=== PATIENT | female | born 1960 | race Caucasian/White ===

== ENCOUNTER → 2017-09-21 | Outpatient (CLI) | payer BC, SELFPAY | PROVIDERS: Visit Provider Emergency Medicine | DX: Z79.899 Other long term (current) drug therapy (principal) | CPT/HCPCS: 80305 ==

== ENCOUNTER → 2017-10-24 11:40 | Outpatient (REF) | payer BC, SELFPAY ==
[2017-10-24 17:15] LABS: Amphetamine/Metha Screen,Urine Negative ng/mL (<1000); Barbiturates Screen,Urine Negative ng/mL (<200); Benzodiazepines Screen,Urine Positive ng/mL (200); Cannabinoid Screen,Urine Negative ng/mL (<50); Cocaine Screen,Urine Negative ng/g (<300); Methadone Screen,Urine Negative ng/mL (<300); Opiate Screen,Urine Positive ng/mL (<300); Phencyclidine Screen,Urine Negative ng/mL (<25)
== END ==
LOC: LAB 11:40
PROVIDERS: Visit Provider Emergency Medicine
DX: Z79.899 Other long term (current) drug therapy (principal)
CPT/HCPCS: 80305

== ENCOUNTER → 2017-11-22 11:18 | Outpatient (REF) | payer BC, SELFPAY ==
[2017-11-22 14:36] LABS: Amphetamine/Metha Screen,Urine Negative ng/mL (<1000); Barbiturates Screen,Urine Negative ng/mL (<200); Benzodiazepines Screen,Urine Positive ng/mL (200); Cannabinoid Screen,Urine Negative ng/mL (<50); Cocaine Screen,Urine Negative ng/g (<300); Methadone Screen,Urine Negative ng/mL (<300); Opiate Screen,Urine Positive ng/mL (<300); Phencyclidine Screen,Urine Negative ng/mL (<25)
== END ==
LOC: LAB 11:18
PROVIDERS: Visit Provider Emergency Medicine
DX: Z79.899 Other long term (current) drug therapy (principal)
CPT/HCPCS: 80305

== ENCOUNTER → 2017-12-22 10:24 | Outpatient (CLI) | payer BC, SELFPAY ==
[2018-01-03 17:13] LABS: Oxycodone (GC/MS) 148 ng/mL (Cutoff=100)
[2018-01-03 22:48] LABS: Opiates Negative (Cutoff=100)
== END ==
PROVIDERS: Visit Provider Nurse Practitioner Family
DX: M54.9 Dorsalgia, unspecified (principal)
CPT/HCPCS: 80361; 80365; G0480

== ENCOUNTER → 2017-12-22 11:06 | Outpatient (REF) | payer BC, SELFPAY ==
[2017-12-22 15:12] LABS: Amphetamine/Metha Screen,Urine Negative ng/mL (<1000); Barbiturates Screen,Urine Negative ng/mL (<200); Benzodiazepines Screen,Urine Positive ng/mL (200); Cannabinoid Screen,Urine Negative ng/mL (<50); Cocaine Screen,Urine Negative ng/g (<300); Methadone Screen,Urine Negative ng/mL (<300); Opiate Screen,Urine Negative ng/mL (<300); Phencyclidine Screen,Urine Negative ng/mL (<25)
== END ==
LOC: LAB 11:06
PROVIDERS: Visit Provider Nurse Practitioner Family
DX: Z79.899 Other long term (current) drug therapy (principal)
CPT/HCPCS: 80305

== ENCOUNTER 2018-01-16 14:54 | Outpatient (RCR) | payer BC, SELFPAY | END 2018-01-16 14:55 | disposition home or self-care (01) | LOC: PT 14:54 | PROVIDERS: Family Provider Emergency Medicine; PCP Emergency Medicine; Visit Provider Orthopaedic Surgery | DX: S82.002A Unspecified fracture of left patella, initial encounter for closed fracture (principal) | CPT/HCPCS: 97760 ==

== ENCOUNTER → 2018-02-06 12:19 | Outpatient (CLI) | payer BC, SELFPAY ==
--- NOTE | 2018-02-06 12:22 | XR_ITS ---
XR patella LT 2V CLINICAL INDICATION: Follow-up fracture/ORIF ITS.REASON: 2 wks post op LT patella ORIF ORDERING PHYSICIAN: Roger Flower MD PATIENT AGE: 57 years COMPARISON: 01/22/2018 FINDINGS: Study is obtained through a knee brace. Status post ORIF patellar fracture. 2 screws in 2's cerclage wires remain in place with good alignment of the fracture fragments. Fracture lines are somewhat obscured. IMPRESSION: Good alignment status post ORIF patellar fracture
== END ==
PROVIDERS: PCP Emergency Medicine; Visit Provider Orthopaedic Surgery
DX: Z98.890 Other specified postprocedural states (principal)
CPT/HCPCS: 73560

== ENCOUNTER 2018-03-01 13:40 | Outpatient (RCR) | payer BC, SELFPAY ==
--- NOTE | 2018-03-01 14:48 | HMH.PTOPEV ---
PT Outpatient Evaluation Rehab PT Outpatient Evaluation Start: 03/01/18 14:24 Freq: Status: Active Protocol: Document 03/01/18 14:35 [email or web address] (Rec: 03/01/18 14:47 TAMIKO [id number]) Electronically Signed By Ravindra Hawthorne PT 03/01/18 14:35 Outpatient Therapy Subjective History Subjective History This is the initial physical therapy evaluation for Barbra Bravo. Pt is a 57 y/o female referred to PT s/o L patellar ORIF. Pt reports she has L foot drop from back injury. Pt reports she caught toe on step and fell fx L patella. Pt reprots fx was , surgery was 01/23. Pt now reprots to PT for ROM adjustment on brace and isometric quad exercises per ortho MD Chief Complaint Stiff Symptom Type Ache Symptoms Relieved By Rest/Positioning Symptoms Aggravated By Standing Physical Activity Walking Lifting Prior Functional Limitations None Current Functional Limitations Housework Standing Recreation Activity Walking Stairs Symptom Description Intermittent Hip/Knee Eval Gait Observation General Gait Pattern Observation Antalgic Gait Assistive Device Assistive Devices Straight Cane Palpation Tenderness left Knee Palpation Finding Tenderness Knee Palpation Overall Comment Pt TTP over incision and patella Hip Palpation Findings None/Normal MMT Hip Strength Reason Not Measured Orthopedic Precautions Knee Strength Reason Not Measured Orthopedic Precautions ROM Knee Extension Active Range of Motion ( 0 degrees) Knee Flexion Active Range of Motion ( 45 degrees) Outpatient Therapy Assessment Impairments Problems/Impairmments Palpation Tenderness Impaired Range of Motion Impaired Strength Impaired Gait Pattern Impaired Walking Impaired Standing Impaired Shower/Bathing Impaired Household Care Impaired Stair Climbing
== END 2018-03-01 13:41 | disposition home or self-care (01) ==
LOC: PT 13:40
PROVIDERS: Family Provider Emergency Medicine; PCP Emergency Medicine; Visit Provider Orthopaedic Surgery
DX: Z98.890 Other specified postprocedural states (principal)
CPT/HCPCS: 97163

== ENCOUNTER → 2018-03-09 08:47 | Outpatient (CLI) | payer BC, SELFPAY ==
--- NOTE | 2018-03-09 08:50 | XR_ITS ---
XR patella LT 2V Ordering Physician: Roger Flower MD Patient Age: 57 years: Female HISTORY: ITS.REASON: 6 wk post op LT patella ORIF 6 weeks postop TECHNIQUE: 2 view left knee with patient in brace. COMPARISON :Previous left knee 02/06/2018. FINDINGS The patient had undergone ORIF of the transverse fracture of patella. 2 long to the oriented screws with associated [id number]-[id number] wire seen providing fixation to the patellar fracture. It appears to be stable in position with no just above brace remain in place . Metallic elements flank the medial and lateral aspect the knee with this brace in place and partially obscure the more posterior aspect the knee on lateral view. The AP view shows slight narrowing of the medial compartment, which is been seen previously. IMPRESSION: Stable ORIF patellar fracture. Brace remains in place Developing degenerative new compartment left knee
== END ==
PROVIDERS: PCP Emergency Medicine; Visit Provider Orthopaedic Surgery
DX: Z47.89 Encounter for other orthopedic aftercare (principal)
CPT/HCPCS: 73560

== ENCOUNTER → 2018-03-09 10:59 | Outpatient (CLI) | payer BC, SELFPAY ==
[2018-03-09 19:46] LABS: Amphetamine/Metha Screen,Urine Negative ng/mL (<1000); Barbiturates Screen,Urine Negative ng/mL (<200); Benzodiazepines Screen,Urine Negative ng/mL (200); Cannabinoid Screen,Urine Negative ng/mL (<50); Cocaine Screen,Urine Negative ng/g (<300); Methadone Screen,Urine Negative ng/mL (<300); Opiate Screen,Urine Positive ng/mL (<300); Phencyclidine Screen,Urine Negative ng/mL (<25)
[2018-03-20 23:13] LABS: Oxycodone (GC/MS) >3000 ng/mL (Cutoff=100)
[2018-03-21 06:53] LABS: Opiates Negative (Cutoff=100); Oxymorphone (GC/MS) 590 ng/mL (Cutoff=100)
== END ==
PROVIDERS: Visit Provider Nurse Practitioner Family
DX: Z79.899 Other long term (current) drug therapy (principal)
CPT/HCPCS: 80305; 80361; 80365; G0480

== ENCOUNTER → 2018-03-12 08:27 | Outpatient (CLI) | payer BC, SELFPAY | PROVIDERS: Visit Provider Nurse Practitioner Family | DX: Z79.891 Long term (current) use of opiate analgesic (principal) ==

== ENCOUNTER → 2018-04-19 12:50 | Outpatient (CLI) | payer BC, SELFPAY ==
--- NOTE | 2018-04-19 12:53 | XR_ITS ---
XR patella LT 2V Ordering Physician: Roger Flower MD Patient Age: 57 years: Female HISTORY: ITS.REASON: s/p ORIF patella TECHNIQUE: AP lateral view left knee COMPARISON :Previous left knee 03/09/2018 and 818 FINDINGS The patient had undergone ORIF of a transverse fracture of patella. 2 longitudinal oriented screws with associated hsvcsm-ll-[id number] wire seen providing fixation to the patellar fracture. It appears to be stable in position. Today's studies a more true lateral projection and shows position of the distal patellar components compatible with studies dating back to 01/22/2018 02/06/2018. Questions some slight additional tilt of the inferior patellar fragment but overall it appears stable on final review. There is some mild soft tissue swelling persists inferior to the patella and along patellar tendon region AP view shows narrowing medial compartment with early arthritic changes at medial compartment. The external knee brace remains in place. IMPRESSION: ORIF patellar fracture. Overall fairly stable appearance of the patella with slight differences in lateral projection are considered Brace remains in place . degenerative changes medial compartment left knee IMPRESSION:
== END ==
PROVIDERS: PCP Emergency Medicine; Visit Provider Orthopaedic Surgery
DX: S82.002A Unspecified fracture of left patella, initial encounter for closed fracture (principal)
CPT/HCPCS: 73560

== ENCOUNTER → 2018-04-20 13:54 | Outpatient (CLI) | payer BC, SELFPAY ==
[2018-04-20 20:00] LABS: Amphetamine/Metha Screen,Urine Positive ng/mL (<1000); Barbiturates Screen,Urine Negative ng/mL (<200); Benzodiazepines Screen,Urine Positive ng/mL (<200); Cannabinoid Screen,Urine Negative ng/mL (<50); Cocaine Screen,Urine Negative ng/mL (<300); Methadone Screen,Urine Negative ng/mL (<300); Opiate Screen,Urine Negative ng/mL (<300); Phencyclidine Screen,Urine Negative ng/mL (<25)
== END ==
PROVIDERS: Visit Provider Emergency Medicine
DX: Z79.899 Other long term (current) drug therapy (principal)
CPT/HCPCS: 80305

== ENCOUNTER → 2018-04-24 10:51 | Outpatient (CLI) | payer BC, SELFPAY ==
--- NOTE | 2018-04-24 10:57 | CT_ITS ---
CT knee LT wo con Ordering Physician: Roger Flower MD Patient Age: 57 years: Female HISTORY: ITS.REASON: S/P patella ORIF Patellar fracture follow-up. Grinding voice at the left knee. Left knee surgery January 2018. TECHNIQUE: Helical thin section CT through the knee with sagittal, coronal, axial reconstructions on CT workstation. In addition 3-D volume rendering with shading images were performed. On independent workstation.-[id number] CPT COMPARISON :Recent plain films of the knee including 04/19/2018, 818 FINDINGS The patient has had previous ORIF of the transverse fracture of the patella.. 2 Longitudinal screws associated with a figure of 8 wire providing fixation to the patella. The sagittal reconstruction view best demonstrates the slight abrupt angled posterior cortex of the posterior patella.. Slight posterior/inward tilt of the lower pole. Suggested yielding this appearance. & 120 degree angle on this sagittal view. The cortical offset of noted. With this the inferior articular surface of patella appears to more prominently interface with the lateral femoral head at the lateral femoral trochanter groove. This feature is narrowing of the lateral patellofemoral joint on axial image 43 and correlates with appearance on inferior patella sagittal image 30-33. Joint effusion persists with Olson's cyst noted. Patient is developing arthritic changes about the knee with narrowing of the medial compartment-it narrows to just over 1 mm at its medial aspect Lateral compartment intact. Mild sclerotic changes about medial compartment more so than lateral. Early tricompartmental marginal osteophytes most evident note: This study was dictated with a voice-recognition system. There may be typographical error is related to such. If they are significant please notify us for corrections IMPRESSION 1. There is a OR I F of the transverse fracture patella. Mild irregularity & suggestion slight angulation of posterior patellar cortex at the fracture is seen on sagittal view. Lower pole appears with subtle tilt inward,/posterior tilt... This may questionably narrow inferior patellofemoral joint. -most evident lateral inferior patellofemoral joint. Correlation required. 2. Persistent joint effusion; with Olson's cyst noted 3. Developing such arthritis of the left knee most evident at medial compartment.
== END ==
PROVIDERS: Family Provider Emergency Medicine; PCP Emergency Medicine; Visit Provider Orthopaedic Surgery
DX: S82.002A Unspecified fracture of left patella, initial encounter for closed fracture (principal)
CPT/HCPCS: 73700

== ENCOUNTER → 2018-05-18 11:24 | Outpatient (REF) | payer BC, SELFPAY ==
[2018-05-18 14:37] LABS: Amphetamine/Metha Screen,Urine Negative ng/mL (<1000); Barbiturates Screen,Urine Negative ng/mL (<200); Benzodiazepines Screen,Urine Negative ng/mL (<200); Cannabinoid Screen,Urine Negative ng/mL (<50); Cocaine Screen,Urine Negative ng/mL (<300); Methadone Screen,Urine Negative ng/mL (<300); Opiate Screen,Urine Positive ng/mL (<300); Phencyclidine Screen,Urine Negative ng/mL (<25)
[2018-05-26 02:08] LABS: Oxycodone (GC/MS) >3000 ng/mL (Cutoff=100)
[2018-05-28 12:53] LABS: Opiates Negative (Cutoff=100); Oxymorphone (GC/MS) 1105 ng/mL (Cutoff=100)
== END ==
LOC: LAB 11:24
PROVIDERS: Visit Provider Emergency Medicine
DX: Z79.899 Other long term (current) drug therapy (principal)
CPT/HCPCS: 80305; 80361; 80365; G0480

== ENCOUNTER → 2018-06-01 09:49 | Outpatient (CLI) | payer BC, SELFPAY ==
--- NOTE | 2018-06-01 10:02 | XR_ITS ---
XR knee RT 4V, XR knee LT 2V Ordering Physician: Roger Flower MD Patient Age: 57 years: Female HISTORY: ITS.REASON: right knee pain Right knee pain. & Previous patellar fracture left knee . TECHNIQUE: Right knee: Weightbearing AP, lateral and Cruz views were performed as well as oblique.. Left knee:: AP and lateral view Left knee ====RIGHT KNEE========= Marked narrowing of the medial compartment measures most pronounced on Cruz view, where there appears merely efnw-sd-[id number] appearance at medial compartment. There is also slight narrowing the lateral compartment. Tricompartmental Marginal osteophytes. Of also some developing hypertrophic spurring at at the tibial spine Patella appears be normal position on sunrise view. Good position of patella at patellofemoral joint with marginal osteophytes about its margin . Large joint effusion at suprapatellar bursa. ---IMPRESSION Osteoarthritis right knee Tricompartmental marginal osteophytes with Narrowing of the medial> lateral compartment ===== LEFT KNEE AP and lateral views left knee are compared to APRIL 19, 2018. Orif of the transverse fracture of patella again noted the longitudinal screws with figure of 8 wire 9 providing fixation and there is been progressive healing at the fracture. Stable, slight cortical offset is seen at the posterior margin of patella. The slight vertebral to the lower pole. Left knee demonstrates less pronounced narrowing of the medial and lateral compartment on. Trace sclerosis about the slightly narrowed medial compartment suggesting early osteophytes here. Tricompartmental marginal osteophytes are minimal & less evident at the left knee. ---IMPRESSION--- Stable ORIF transverse patellar fracture with slight progressive healing since April 18 Osteoarthritis features at left knee are less evident than seen at right knee
== END ==
PROVIDERS: PCP Emergency Medicine; Visit Provider Orthopaedic Surgery
DX: M25.561 Pain in right knee (principal); S82.009A Unspecified fracture of unspecified patella, initial encounter for closed fracture
CPT/HCPCS: 73560; 73564

== ENCOUNTER → 2018-06-15 11:20 | Outpatient (CLI) | payer BC, SELFPAY ==
[2018-06-15 18:40] LABS: Amphetamine/Metha Screen,Urine Positive ng/mL (<1000); Barbiturates Screen,Urine Negative ng/mL (<200); Benzodiazepines Screen,Urine Positive ng/mL (<200); Cannabinoid Screen,Urine Negative ng/mL (<50); Cocaine Screen,Urine Negative ng/mL (<300); Methadone Screen,Urine Negative ng/mL (<300); Opiate Screen,Urine Positive ng/mL (<300); Phencyclidine Screen,Urine Negative ng/mL (<25)
== END ==
PROVIDERS: Visit Provider Emergency Medicine
DX: Z79.899 Other long term (current) drug therapy (principal)
CPT/HCPCS: 80305

== ENCOUNTER → 2018-07-13 10:00 | Outpatient (CLI) | payer BC, SELFPAY ==
[2018-07-13 15:24] LABS: Amphetamine/Metha Screen,Urine Positive ng/mL (<1000); Barbiturates Screen,Urine Negative ng/mL (<200); Benzodiazepines Screen,Urine Positive ng/mL (<200); Cannabinoid Screen,Urine Negative ng/mL (<50); Cocaine Screen,Urine Negative ng/mL (<300); Methadone Screen,Urine Negative ng/mL (<300); Opiate Screen,Urine Positive ng/mL (<300); Phencyclidine Screen,Urine Negative ng/mL (<25)
== END ==
PROVIDERS: Visit Provider Emergency Medicine
DX: Z79.899 Other long term (current) drug therapy (principal)
CPT/HCPCS: 80305

== ENCOUNTER → 2018-08-06 18:02 | Outpatient (CLI) | payer BC, SELFPAY ==
[2018-08-06 20:28] LABS: Amphetamine/Metha Screen,Urine Negative ng/mL (<1000); Barbiturates Screen,Urine Negative ng/mL (<200); Benzodiazepines Screen,Urine Negative ng/mL (<200); Cannabinoid Screen,Urine Negative ng/mL (<50); Cocaine Screen,Urine Negative ng/mL (<300); Methadone Screen,Urine Negative ng/mL (<300); Opiate Screen,Urine Positive ng/mL (<300); Phencyclidine Screen,Urine Negative ng/mL (<25)
== END ==
PROVIDERS: Visit Provider Emergency Medicine
DX: Z79.899 Other long term (current) drug therapy (principal)
CPT/HCPCS: 80305

== ENCOUNTER → 2018-09-21 18:14 | Outpatient (CLI) | payer BC, SELFPAY ==
[2018-09-21 18:49] LABS: Amphetamine/Metha Screen,Urine Negative ng/mL (<1000); Barbiturates Screen,Urine Negative ng/mL (<200); Benzodiazepines Screen,Urine Negative ng/mL (<200); Cannabinoid Screen,Urine Negative ng/mL (<50); Cocaine Screen,Urine Negative ng/mL (<300); Methadone Screen,Urine Negative ng/mL (<300); Opiate Screen,Urine Positive ng/mL (<300); Phencyclidine Screen,Urine Negative ng/mL (<25)
== END ==
PROVIDERS: Visit Provider Emergency Medicine
DX: M54.9 Dorsalgia, unspecified (principal); F41.9 Anxiety disorder, unspecified
CPT/HCPCS: 80305

== ENCOUNTER → 2018-11-05 17:37 | Outpatient (CLI) | payer BC, SELFPAY ==
[2018-11-05 18:49] LABS: Amphetamine/Metha Screen,Urine Negative ng/mL (<1000); Barbiturates Screen,Urine Positive ng/mL (<200); Benzodiazepines Screen,Urine Negative ng/mL (<200); Cannabinoid Screen,Urine Negative ng/mL (<50); Cocaine Screen,Urine Negative ng/mL (<300); Methadone Screen,Urine Negative ng/mL (<300); Opiate Screen,Urine Positive ng/mL (<300); Phencyclidine Screen,Urine Negative ng/mL (<25)
[2018-11-12 14:32] LABS: Barbiturates Positive (.)
== END ==
LOC: LAB 17:38 → LAB.DROPOF 11-06 09:11
PROVIDERS: Visit Provider Emergency Medicine
DX: Z79.899 Other long term (current) drug therapy (principal)
CPT/HCPCS: 80305; 80345

== ENCOUNTER → 2019-01-01 18:19 | Outpatient (CLI) | payer BC, SELFPAY ==
[2019-01-01 19:58] LABS: Amphetamine/Metha Screen,Urine Negative ng/mL (<1000); Barbiturates Screen,Urine Negative ng/mL (<200); Benzodiazepines Screen,Urine Negative ng/mL (<200); Cannabinoid Screen,Urine Negative ng/mL (<50); Cocaine Screen,Urine Negative ng/mL (<300); Methadone Screen,Urine Negative ng/mL (<300); Opiate Screen,Urine Positive ng/mL (<300); Phencyclidine Screen,Urine Negative ng/mL (<25)
== END ==
PROVIDERS: Visit Provider Emergency Medicine
DX: Z79.899 Other long term (current) drug therapy (principal)
CPT/HCPCS: 80305

== ENCOUNTER → 2019-02-26 21:26 | Outpatient (CLI) | payer BC, SELFPAY ==
[2019-02-26 23:54] LABS: Amphetamine/Metha Screen,Urine Negative ng/mL (<1000); Barbiturates Screen,Urine Negative ng/mL (<200); Benzodiazepines Screen,Urine Positive ng/mL (<200); Cannabinoid Screen,Urine Negative ng/mL (<50); Cocaine Screen,Urine Negative ng/mL (<300); Methadone Screen,Urine Negative ng/mL (<300); Opiate Screen,Urine Positive ng/mL (<300); Phencyclidine Screen,Urine Negative ng/mL (<25)
== END ==
PROVIDERS: Visit Provider Emergency Medicine
DX: Z79.899 Other long term (current) drug therapy (principal)
CPT/HCPCS: 80305

== ENCOUNTER → 2019-04-23 17:33 | Outpatient (CLI) | payer BC, SELFPAY ==
[2019-04-23 19:32] LABS: Amphetamine/Metha Screen,Urine Negative ng/mL (<1000); Barbiturates Screen,Urine Negative ng/mL (<200); Benzodiazepines Screen,Urine Negative ng/mL (<200); Cannabinoid Screen,Urine Negative ng/mL (<50); Cocaine Screen,Urine Negative ng/mL (<300); Methadone Screen,Urine Negative ng/mL (<300); Opiate Screen,Urine Positive ng/mL (<300); Phencyclidine Screen,Urine Negative ng/mL (<25)
== END ==
PROVIDERS: Visit Provider Emergency Medicine
DX: Z79.899 Other long term (current) drug therapy (principal)
CPT/HCPCS: 80305

== ENCOUNTER → 2019-06-25 18:03 | Outpatient (CLI) | payer BC, SELFPAY ==
[2019-06-25 19:08] LABS: Amphetamine/Metha Screen,Urine Negative ng/mL (<1000); Barbiturates Screen,Urine Negative ng/mL (<200); Benzodiazepines Screen,Urine Positive ng/mL (<200); Cannabinoid Screen,Urine Negative ng/mL (<50); Cocaine Screen,Urine Negative ng/mL (<300); Methadone Screen,Urine Negative ng/mL (<300); Opiate Screen,Urine Positive ng/mL (<300); Phencyclidine Screen,Urine Negative ng/mL (<25)
== END ==
PROVIDERS: Visit Provider Emergency Medicine
DX: M54.9 Dorsalgia, unspecified (principal)
CPT/HCPCS: 80305

== ENCOUNTER → 2019-08-23 17:16 | Outpatient (CLI) | payer BC, SELFPAY ==
[2019-08-23 18:22] LABS: Amphetamine/Metha Screen,Urine Negative ng/mL (<1000); Barbiturates Screen,Urine Negative ng/mL (<200); Benzodiazepines Screen,Urine Negative ng/mL (<200); Cannabinoid Screen,Urine Negative ng/mL (<50); Cocaine Screen,Urine Negative ng/mL (<300); Methadone Screen,Urine Negative ng/mL (<300); Opiate Screen,Urine Positive ng/mL (<300); Phencyclidine Screen,Urine Negative ng/mL (<25)
[2019-09-04 22:07] LABS: Alprazolam Negative (Cutoff=100); Benzodiazepines Negative ng/mL (Cutoff=100); Clonazepam Negative (Cutoff=100); Flurazepam Negative (Cutoff=100); Lorazepam Negative (Cutoff=100); Midazolam Negative (Cutoff=100); Temazepam Negative (Cutoff=100); Triazolam Negative (Cutoff=100)
[2019-09-05 11:15] LABS: Opiates Negative ng/mL (Cutoff=100)
== END ==
PROVIDERS: Visit Provider Emergency Medicine
DX: Z79.899 Other long term (current) drug therapy (principal)
CPT/HCPCS: 80305; 80346; 80361; G0480

== ENCOUNTER → 2019-10-23 17:16 | Outpatient (CLI) | payer BC, SELFPAY ==
[2019-10-23 19:25] LABS: Amphetamine/Metha Screen,Urine Negative ng/mL (<1000); Barbiturates Screen,Urine Negative ng/mL (<200); Benzodiazepines Screen,Urine Positive ng/mL (<200); Cannabinoid Screen,Urine Negative ng/mL (<50); Cocaine Screen,Urine Negative ng/mL (<300); Methadone Screen,Urine Negative ng/mL (<300); Opiate Screen,Urine Negative ng/mL (<300); Phencyclidine Screen,Urine Negative ng/mL (<25)
[2019-10-30 12:28] LABS: Oxycodone (GC/MS) >3000 ng/mL (Cutoff=100)
[2019-10-31 16:57] LABS: Opiates Negative (Cutoff=100)
== END ==
PROVIDERS: Visit Provider Emergency Medicine
DX: Z79.899 Other long term (current) drug therapy (principal)
CPT/HCPCS: 80305; 80361; 80365; G0480

== ENCOUNTER → 2020-02-12 14:50 | Outpatient (CLI) | payer BC, SELFPAY ==
[2020-02-12 15:24] LABS: Barbiturates Screen,Urine Negative ng/ml (<200)
[2020-02-12 15:25] LABS: Amphetamine/Metha Screen,Urine Positive ng/ml (<1000); Benzodiazepines Screen,Urine Negative ng/ml (<200)
[2020-02-12 15:26] LABS: Cannabinoid Screen,Urine Negative ng/ml (<50); Cocaine Screen,Urine Negative ng/ml (<300)
[2020-02-12 15:27] LABS: Methadone Screen,Urine Negative ng/ml (<300)
[2020-02-12 15:28] LABS: Opiate Screen,Urine Negative ng/ml (<300); Phencyclidine Screen,Urine Negative ng/ml (<25)
[2020-02-12 17:13] LABS: Basophils % 0.4 % (0.1-2.0); Eosinophils % 0.7 % (0.1-12.0); Hematocrit 41.8 % (37.0-47.0); Hemoglobin 13.3 g/dL (12.2-16.2); Lymphocytes # 1.5 K/mm3 (0.7-4.5); Lymphocytes % 23.1 % (10-50); Mean Corpuscular HGB Conc 31.8 g/dL (31.8-35.4); Mean Corpuscular Hemoglobin 30.3 pg (27.0-31.2); Mean Corpuscular Volume 95.4 fl (81-99); Mean Platelet Volume 9.2 fl (7.4-10.4); Monocytes # 0.3 K/mm3 (0.1-1.0); Monocytes % 4.1 % (1.7-9.3); Neutrophils # 4.6 K/mm3 (1.8-7.8); Neutrophils % 71.8 % (37.0-80.0); Platelet Count 202 K/mm3 (142-424); Red Blood Count 4.38 M/mm3 (4.20-5.40); Red Cell Distribution Width 13.3 % (11.5-17.5); White Blood Count 6.5 K/mm3 (4.8-10.8)
[2020-02-12 17:18] LABS: Chloride 92 mmol/L (98-107); Potassium 3.8 mmoL/L (3.5-5.1); Sodium 129 mmol/L (136-145)
[2020-02-12 17:20] LABS: Alanine Aminotransferase 15 U/L (12-78); Alkaline Phosphatase 68 U/L (38-126); Aspartate Amino Transferase 27 U/L (14-36); Bilirubin,Total 0.7 mg/dl (0.2-1.3); Blood Urea Nitrogen 6 mg/dl (7-17); Estimated Glomerular Filt Rate 126 ml/min (>60); GFR (African American) 152 ML/MIN (>60)
[2020-02-12 17:21] LABS: Albumin Level 4.4 g/dl (3.5-5.0); Albumin/Globulin Ratio 1.7 (1.1-1.8); Anion Gap 12.8 mEq/L (5-15); Calcium 9.1 mg/dl (8.4-10.2); Carbon Dioxide 28 mmol/L (22.0-30.0); Chol/HDL Ratio 2.2 (1-3.5); Cholesterol 148 mg/dl (140-200); Globulin 2.6 g/dL (1.3-3.2); Glucose 119 mg/dl (74-100); HDL Cholesterol 67 mg/dl (40-60); Triglycerides 70 mg/dl (30-150); VLDL Cholesterol 14 mg/dL (0-40)
[2020-02-12 17:32] LABS: Direct LDL Cholesterol 92.86 mg/dL (100-129)
[2020-02-12 17:37] LABS: T4 (Thyroxine) 8.1 ug/dl (5.53-11.0)
[2020-02-14 07:38] LABS: Vitamin D 25 Hydroxy 31.6 ng/mL (30.0-100.0)
[2020-02-19 14:18] LABS: Amphetamine Positive (.); Amphetamines Positive (.); Methamphetamine Positive (.)
[2020-02-20 11:34] LABS: Amphetamine (GC/MS) 534 ng/mL (Cutoff=500); Methamphetamine (GC/MS) 6412 ng/mL (Cutoff=500)
== END ==
PROVIDERS: Visit Provider Emergency Medicine
DX: Z00.00 Encounter for general adult medical examination without abnormal findings (principal); Z79.899 Other long term (current) drug therapy
CPT/HCPCS: 80053; 80061; 80305; 80324; 82652; 84436; 84443; 85025

== ENCOUNTER → 2021-11-02 11:22 | Outpatient (CLI) | payer BC, SELFPAY ==
--- NOTE | 2021-11-02 11:30 | XR_ITS ---
FINAL REPORT CLINICAL HISTORY: Left knee pain. COMPARISON: June 01, 2018. FINDINGS: 4 views of the left knee were obtained, including sunrise view. There is no acute fracture or dislocation. There are post ORIF changes of the patella. There are moderate degenerative changes at the knee joint. There is no soft tissue abnormality. No joint effusion is seen. IMPRESSION: No acute fracture. Postoperative and degenerative change. Reviewed, Interpreted and Dictated by Sarah Luevano MD Transcribed by Jojo Rome PA-C Authenticated by Sarah Luevano MD on 11/02/2021 01:03:14 PM [facility]
--- NOTE | 2021-11-02 11:30 | XR_ITS ---
FINAL REPORT CLINICAL HISTORY: Left wrist pain. COMPARISON: None. FINDINGS: Three views demonstrate no acute fracture or dislocation. There are post ORIF changes of the distal radius. There is an old ununited ulnar styloid process fracture. The visualized joint spaces are normally aligned. The soft tissues are unremarkable. IMPRESSION: Postoperative change. No acute process. Reviewed, Interpreted and Dictated by Sarah Luevano MD Transcribed by Jojo Rome PA-C Authenticated by Sarah Luevano MD on 11/02/2021 01:03:14 PM [facility]
--- NOTE | 2021-11-02 11:30 | XR_ITS ---
FINAL REPORT CLINICAL HISTORY: Right knee pain. COMPARISON: June 01, 2018. FINDINGS: 4 views of the right knee were obtained, including sunrise view. There is no acute fracture or dislocation. There is moderate to severe tricompartmental degenerative change. Degenerative disease is more prominent involving the lateral compartment. A moderate size joint effusion is present. IMPRESSION: Degenerative change and moderate joint effusion. Reviewed, Interpreted and Dictated by Sarah Luevano MD Transcribed by Jojo Rome PA-C Authenticated by Sarah Luevano MD on 11/02/2021 01:03:11 PM [facility]
--- NOTE | 2021-11-02 15:44 | XR_ITS ---
FINAL REPORT CLINICAL HISTORY: Right hip pain. COMPARISON: None. FINDINGS: Two views of the right hip demonstrate no acute fracture or dislocation. The joint spaces appear normal. The visualized bony structures are well aligned. No soft tissue abnormality is seen. IMPRESSION: No acute bony abnormality. Reviewed, Interpreted and Dictated by Sarah Luevano MD Transcribed by Jojo Rome PA-C Authenticated by Sarah Luevano MD on 11/02/2021 04:40:[address] [facility]
--- NOTE | 2021-11-02 15:44 | XR_ITS ---
FINAL REPORT CLINICAL HISTORY: Left hip pain. COMPARISON: None. FINDINGS: Two views of the left hip demonstrate no acute fracture or dislocation. There are mild degenerative changes. The visualized bony structures are well aligned. No soft tissue abnormality is seen. IMPRESSION: Mild degenerative change without evidence of acute process. Reviewed, Interpreted and Dictated by Sarah Luevano MD Transcribed by Jojo Rome PA-C Authenticated by Sarah Luevano MD on 11/02/2021 04:40:38 PM [facility]
== END ==
PROVIDERS: PCP Emergency Medicine; Visit Provider Podiatrist
DX: M25.562 Pain in left knee (principal); M25.561 Pain in right knee; M25.532 Pain in left wrist; M25.552 Pain in left hip; M25.551 Pain in right hip
CPT/HCPCS: 73110; 73502; 73564

== ENCOUNTER → 2021-11-23 13:40 | Outpatient (CLI) | payer BC, SELFPAY ==
--- NOTE | 2021-11-23 13:58 | XR_ITS ---
FINAL REPORT CLINICAL HISTORY: pain FINDINGS: 3 views of the left foot were obtained. There is no acute fracture or dislocation. The joint spaces are intact. The soft tissues are unremarkable. IMPRESSION: No acute process. Reviewed, Interpreted and Dictated by Malcolm Ledesma MD Transcribed by Haile Longoria Authenticated by Malcolm Ledesma MD on 11/23/2021 03:40:50 PM [facility]
--- NOTE | 2021-11-23 13:58 | XR_ITS ---
FINAL REPORT CLINICAL HISTORY: pain FINDINGS: 3 views of the right foot were obtained. There is no acute fracture or dislocation. The joint spaces are intact. The soft tissues are unremarkable. IMPRESSION: No acute process. Reviewed, Interpreted and Dictated by Malcolm Ledesma MD Transcribed by Haile Longoria Authenticated by Malcolm Ledesma MD on 11/23/2021 03:40:51 PM [facility]
== END ==
PROVIDERS: PCP Emergency Medicine; Visit Provider Podiatrist
DX: M79.672 Pain in left foot (principal); M79.671 Pain in right foot
CPT/HCPCS: 73630

== ENCOUNTER 2022-01-13 11:48 | Outpatient (RCR) | payer BC, SELFPAY | END 2022-01-13 12:47 | disposition home or self-care (01) | LOC: PT 11:48 | PROVIDERS: Visit Provider Orthopaedic Surgery | DX: M17.11 Unilateral primary osteoarthritis, right knee (principal) ==

== ENCOUNTER → 2022-04-20 06:29 | Outpatient (CLI) | payer BC, SELFPAY ==
[2022-04-19 20:34] LABS: Basophils % 0.5 % (0.1-2.0); Eosinophils # 0.1 K/mm3 (0.0-0.4); Eosinophils % 1.4 % (0.1-12.0); Hematocrit 43.9 % (37.0-47.0); Hemoglobin 14.6 g/dL (12.2-16.2); Lymphocytes # 2.1 K/mm3 (0.7-4.5); Lymphocytes % 28.1 % (10-50); Mean Corpuscular HGB Conc 33.3 g/dL (31.8-35.4); Mean Corpuscular Hemoglobin 31.5 pg (27.0-31.2); Mean Corpuscular Volume 94.7 fl (81-99); Mean Platelet Volume 10.1 fl (7.4-10.4); Monocytes # 0.4 K/mm3 (0.1-1.0); Monocytes % 5.5 % (1.7-9.3); Neutrophils # 4.7 K/mm3 (1.8-7.8); Neutrophils % 64.5 % (37.0-80.0); Platelet Count 232 K/mm3 (142-424); Red Blood Count 4.64 M/mm3 (4.20-5.40); Red Cell Distribution Width 12.9 % (11.5-17.5); White Blood Count 7.3 K/mm3 (4.8-10.8)
[2022-04-19 21:03] LABS: Alanine Aminotransferase 15 U/L (12-78); Albumin Level 4.7 g/dl (3.5-5.0); Albumin/Globulin Ratio 1.6 (1.1-1.8); Alkaline Phosphatase 69 U/L (38-126); Anion Gap 15.5 mEq/L (5-15); Aspartate Amino Transferase 20 U/L (14-36); Bilirubin,Total 0.4 mg/dl (0.2-1.3); Blood Urea Nitrogen 10 mg/dl (7-17); Calcium 9.5 mg/dl (8.4-10.2); Carbon Dioxide 29 mmol/L (22.0-30.0); Chloride 97 mmol/L (98-107); Chol/HDL Ratio 3.2 (1-3.5); Cholesterol 203 mg/dl (140-200); Estimated Glomerular Filt Rate 101 ml/min (>60); GFR (African American) 123 ML/MIN (>60); Glucose 82 mg/dl (74-100); HDL Cholesterol 64 mg/dl (40-60); Potassium 4.5 mmoL/L (3.5-5.1); Sodium 137 mmol/L (136-145); Total Protein,Serum 7.7 g/dl (6.3-8.2); Triglycerides 92 mg/dl (30-150); VLDL Cholesterol 18 mg/dL (0-40)
[2022-04-19 21:15] LABS: Direct LDL Cholesterol 109.01 mg/dL (100-129)
[2022-04-19 21:19] LABS: Free T4 (Free Thyroxine) 1.21 ng/dl (0.78-2.19)
[2022-04-19 21:35] LABS: Thyroid Stimulating Hormone 3.67 uIU/mL (0.465-4.68)
[2022-04-27 17:13] LABS: 1,25 Dihydroxy Vitamin D 38 pg/mL (.); 1,25-Dihydroxy, Vitamin D-2 <10 pg/mL (.); 1,25-Dihydroxy, Vitamin D-3 37 pg/mL (.)
== END ==
PROVIDERS: PCP Emergency Medicine; Visit Provider Emergency Medicine
DX: J44.9 Chronic obstructive pulmonary disease, unspecified (principal); E78.5 Hyperlipidemia, unspecified; M54.9 Dorsalgia, unspecified
CPT/HCPCS: 80053; 80061; 82652; 84439; 84443; 85025

== ENCOUNTER → 2022-05-11 14:57 | Outpatient (CLI) | payer BC, SELFPAY ==
--- NOTE | 2022-05-11 15:03 | XR_ITS ---
FINAL REPORT CLINICAL HISTORY: elbow pain COMPARISON: November 02, 2021 FINDINGS: LEFT WRIST Three views demonstrate a chronic fracture of the distal radius with postoperative changes from ORIF. 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 There is mild degenerative change. The visualized joint spaces are normally aligned. The soft tissues are unremarkable. IMPRESSION: Radius and ulnar fractures as described, stable. Reviewed, Interpreted and Dictated by Cali Walker III, MD Transcribed by Zuleyma Bonilla Authenticated and [facility]
[2022-05-11 19:12] LABS: Amphetamine/Metha Screen,Urine Negative ng/ml (<1000); Barbiturates Screen,Urine Negative ng/ml (<200)
[2022-05-11 19:13] LABS: Benzodiazepines Screen,Urine Negative ng/ml (<200); Cannabinoid Screen,Urine Negative ng/ml (<50)
[2022-05-11 19:14] LABS: Cocaine Screen,Urine Negative ng/ml (<300)
[2022-05-11 19:15] LABS: Methadone Screen,Urine Negative ng/ml (<300); Opiate Screen,Urine Negative ng/ml (<300)
[2022-05-11 19:16] LABS: Phencyclidine Screen,Urine Negative ng/ml (<25)
== END ==
PROVIDERS: PCP Emergency Medicine; Visit Provider Emergency Medicine
DX: M25.532 Pain in left wrist (principal); Z79.899 Other long term (current) drug therapy
CPT/HCPCS: 73110; 80305

== ENCOUNTER 2022-06-01 16:07 | Outpatient (RCR) | payer BC, SELFPAY | END 2022-06-01 17:00 | disposition home or self-care (01) | LOC: OT 16:07 | PROVIDERS: Visit Provider Orthopaedic Surgery | DX: M25.532 Pain in left wrist (principal) | CPT/HCPCS: 97763 ==

== ENCOUNTER → 2022-07-11 14:03 | Outpatient (CLI) | payer BC, SELFPAY ==
[2022-07-11 19:02] LABS: Amphetamine/Metha Screen,Urine Negative ng/ml (<1000)
[2022-07-11 19:03] LABS: Barbiturates Screen,Urine Negative ng/ml (<200); Benzodiazepines Screen,Urine Negative ng/ml (<200)
[2022-07-11 19:04] LABS: Cannabinoid Screen,Urine Negative ng/ml (<50); Methadone Screen,Urine Negative ng/ml (<300)
[2022-07-11 19:05] LABS: Cocaine Screen,Urine Negative ng/ml (<300)
[2022-07-11 19:08] LABS: Opiate Screen,Urine Negative ng/ml (<300); Phencyclidine Screen,Urine Negative ng/ml (<25)
== END ==
PROVIDERS: PCP Emergency Medicine; Visit Provider Emergency Medicine
DX: F41.9 Anxiety disorder, unspecified (principal); M54.50 Low back pain, unspecified
CPT/HCPCS: 80305

== ENCOUNTER → 2022-08-12 14:24 | Outpatient (CLI) | payer BC, SELFPAY ==
[2022-08-12 17:49] LABS: Coronavirus 19, PCR Not Detected (NotDetected); Influenza A, PCR Not Detected (NotDetected); Influenza B, PCR Not Detected (NotDetected)
== END ==
PROVIDERS: PCP Emergency Medicine; Visit Provider Emergency Medicine
DX: R05.9 Cough, unspecified (principal); Z20.822 Contact with and (suspected) exposure to COVID-19
CPT/HCPCS: C9803; U0003; U0005

== ENCOUNTER → 2022-08-22 15:36 | Outpatient (CLI) | payer BC, SELFPAY ==
--- NOTE | 2022-08-22 15:49 | XR_ITS ---
FINAL REPORT CLINICAL HISTORY: shortness of breath FINDINGS: 2 views of the chest were obtained . The heart is normal in size. The mediastinum is within normal limits. There is moderate right base atelectasis or scarring. There is no pneumothorax. Osseous structures demonstrate postoperative changes of the thoracolumbar spine. IMPRESSION: Moderate right base atelectasis or scarring. Reviewed, Interpreted and Dictated by Cali Walker III, MD Transcribed by Nory Todd Authenticated and [facility]
== END ==
PROVIDERS: PCP Emergency Medicine; Visit Provider Emergency Medicine
DX: R06.02 Shortness of breath (principal)
CPT/HCPCS: 71046

== ENCOUNTER → 2022-09-07 15:08 | Outpatient (CLI) | payer BC, SELFPAY ==
[2022-09-07 19:16] LABS: Amphetamine/Metha Screen,Urine Negative ng/ml (<1000)
[2022-09-07 19:17] LABS: Barbiturates Screen,Urine Negative ng/ml (<200)
[2022-09-07 19:18] LABS: Benzodiazepines Screen,Urine Positive ng/ml (<200); Cannabinoid Screen,Urine Negative ng/ml (<50)
[2022-09-07 19:19] LABS: Cocaine Screen,Urine Negative ng/ml (<300)
[2022-09-07 19:20] LABS: Methadone Screen,Urine Negative ng/ml (<300); Opiate Screen,Urine Positive ng/ml (<300)
[2022-09-07 19:21] LABS: Phencyclidine Screen,Urine Negative ng/ml (<25)
== END ==
PROVIDERS: PCP Emergency Medicine; Visit Provider Emergency Medicine
DX: Z79.899 Other long term (current) drug therapy (principal)
CPT/HCPCS: 80305

== ENCOUNTER → 2022-11-07 23:30 | Outpatient (CLI) | payer BC, SELFPAY ==
[2022-11-07 18:20] LABS: Barbiturates Screen,Urine Negative ng/ml (<200)
[2022-11-07 18:21] LABS: Benzodiazepines Screen,Urine Positive ng/ml (<200); Cannabinoid Screen,Urine Negative ng/ml (<50)
[2022-11-07 18:22] LABS: Cocaine Screen,Urine Negative ng/ml (<300)
[2022-11-07 18:23] LABS: Methadone Screen,Urine Negative ng/ml (<300); Opiate Screen,Urine Positive ng/ml (<300)
[2022-11-07 18:24] LABS: Phencyclidine Screen,Urine Negative ng/ml (<25)
[2022-11-09 18:50] LABS: Amphetamine/Metha Screen,Urine Negative ng/ml (<1000)
== END ==
PROVIDERS: PCP Emergency Medicine; Visit Provider Emergency Medicine
DX: Z79.899 Other long term (current) drug therapy (principal)
CPT/HCPCS: 80305

== ENCOUNTER → 2023-01-03 23:15 | Outpatient (CLI) | payer BC, SELFPAY ==
[2023-01-03 18:56] LABS: Amphetamine/Metha Screen,Urine Negative ng/ml (<1000)
[2023-01-03 18:57] LABS: Barbiturates Screen,Urine Negative ng/ml (<200); Benzodiazepines Screen,Urine Positive ng/ml (<200)
[2023-01-03 18:58] LABS: Cannabinoid Screen,Urine Negative ng/ml (<50)
[2023-01-03 18:59] LABS: Cocaine Screen,Urine Negative ng/ml (<300); Methadone Screen,Urine Negative ng/ml (<300)
[2023-01-03 19:00] LABS: Opiate Screen,Urine Positive ng/ml (<300)
[2023-01-03 19:01] LABS: Phencyclidine Screen,Urine Negative ng/ml (<25)
== END ==
PROVIDERS: PCP Emergency Medicine; Visit Provider Emergency Medicine
DX: Z79.899 Other long term (current) drug therapy (principal)
CPT/HCPCS: 80305

== ENCOUNTER → 2023-01-19 14:07 | Outpatient (CLI) | payer BC, SELFPAY ==
--- NOTE | 2023-01-19 14:16 | XR_ITS ---
FINAL REPORT CLINICAL HISTORY: right knee pain COMPARISON: 11/02/2021 FINDINGS: Three views of the right knee reveal no evidence of fracture or dislocation. The bony alignment is normal. There is moderate degenerative change with joint space narrowing, worst laterally and progressed from prior. There is a moderate joint effusion. No localized soft tissue abnormality is identified. IMPRESSION: Degenerative change and joint effusion with no acute abnormality identified. Reviewed, Interpreted and Dictated by Cali Walker III, MD Transcribed by Rajni Keller Authenticated and [facility]
--- NOTE | 2023-01-19 14:16 | XR_ITS ---
FINAL REPORT CLINICAL HISTORY: left wrist pain COMPARISON: 05/11/2022 FINDINGS: LEFT WRIST Three views demonstrate no acute fracture or dislocation. There are postoperative changes in the distal radius with a screw plate and multiple screws present. There is chronic deformity of the distal radius from prior fracture. There is a chronic fracture of the ulnar styloid process, nonunion. There is mild degenerative change. IMPRESSION: No acute process. Reviewed, Interpreted and Dictated by Cali Walker III, MD Transcribed by Rajni Keller Authenticated and [facility]
== END ==
PROVIDERS: PCP Emergency Medicine; Visit Provider Orthopaedic Surgery
DX: M25.532 Pain in left wrist (principal); M25.561 Pain in right knee
CPT/HCPCS: 73110; 73562

== ENCOUNTER → 2023-03-08 14:30 | Outpatient (CLI) | payer BC, SELFPAY | PROVIDERS: PCP Emergency Medicine; Visit Provider Emergency Medicine | DX: M54.16 Radiculopathy, lumbar region (principal) ==

== ENCOUNTER → 2023-03-08 19:23 | Outpatient (CLI) | payer BC, SELFPAY ==
[2023-03-08 21:46] LABS: Amphetamine/Metha Screen,Urine Negative ng/ml (<1000); Barbiturates Screen,Urine Negative ng/ml (<200)
[2023-03-08 21:48] LABS: Benzodiazepines Screen,Urine Positive ng/ml (<200)
[2023-03-08 21:49] LABS: Cannabinoid Screen,Urine Negative ng/ml (<50)
[2023-03-08 21:50] LABS: Cocaine Screen,Urine Negative ng/ml (<300); Methadone Screen,Urine Negative ng/ml (<300)
[2023-03-08 21:51] LABS: Opiate Screen,Urine Positive ng/ml (<300); Phencyclidine Screen,Urine Negative ng/ml (<25)
== END ==
PROVIDERS: PCP Emergency Medicine; Visit Provider Emergency Medicine
DX: M54.16 Radiculopathy, lumbar region (principal)
CPT/HCPCS: 80305

== ENCOUNTER → 2023-05-09 23:26 | Outpatient (CLI) | payer BC, SELFPAY ==
[2023-05-10 07:29] LABS: Amphetamine/Metha Screen,Urine Negative ng/ml (<1000); Barbiturates Screen,Urine Negative ng/ml (<200); Benzodiazepines Screen,Urine Positive ng/ml (<200); Cannabinoid Screen,Urine Negative ng/ml (<50); Cocaine Screen,Urine Negative ng/ml (<300); Opiate Screen,Urine Negative ng/ml (<300); Phencyclidine Screen,Urine Negative ng/ml (<25)
[2023-05-10 16:17] LABS: Methadone Screen,Urine Negative ng/ml (<300)
== END ==
PROVIDERS: PCP Emergency Medicine; Visit Provider Emergency Medicine
DX: Z79.899 Other long term (current) drug therapy (principal)
CPT/HCPCS: 80305

== ENCOUNTER → 2023-06-14 15:04 | Outpatient (POV) | payer BC, SELFPAY ==
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
[2023-06-14 15:41] VITALS: BP 122/71; PULSE 104; RESP 20; O2SAT 96; BMI 26.4
== END | disposition home or self-care (01) ==
PROVIDERS: PCP Emergency Medicine; Visit Provider Nurse Practitioner Family
DX: M25.561 Pain in right knee (principal); M25.562 Pain in left knee; M17.0 Bilateral primary osteoarthritis of knee; G89.4 Chronic pain syndrome
CPT/HCPCS: 99202; G0463

== ENCOUNTER → 2023-07-10 11:44 | Outpatient (CLI) | payer BC, SELFPAY | PROVIDERS: PCP Emergency Medicine; Visit Provider Emergency Medicine | DX: R53.83 Other fatigue (principal) ==

== ENCOUNTER → 2023-07-10 14:03 | Outpatient (CLI) | payer BC, SELFPAY ==
[2023-07-10 20:33] LABS: Amphetamine/Metha Screen,Urine Negative ng/ml (<1000); Barbiturates Screen,Urine Negative ng/ml (<200)
[2023-07-10 20:34] LABS: Benzodiazepines Screen,Urine Negative ng/ml (<200)
[2023-07-10 20:35] LABS: Cannabinoid Screen,Urine Negative ng/ml (<50); Cocaine Screen,Urine Negative ng/ml (<300)
[2023-07-10 20:36] LABS: Methadone Screen,Urine Negative ng/ml (<300)
[2023-07-10 20:37] LABS: Opiate Screen,Urine Negative ng/ml (<300); Phencyclidine Screen,Urine Negative ng/ml (<25)
== END ==
PROVIDERS: PCP Emergency Medicine; Visit Provider Emergency Medicine
DX: G89.4 Chronic pain syndrome (principal)
CPT/HCPCS: 80305

== ENCOUNTER → 2023-07-19 16:57 | Outpatient (CLI) | payer BC, SELFPAY ==
--- NOTE | 2023-07-19 16:57 | MM_ITS ---
PROCEDURE INFORMATION: Exam: MG Bilateral Screening 3D Mammography Exam date and time: 07/19/2023 4:48 PM Age: 62 years old Clinical indication: Screening examination TECHNIQUE: Imaging protocol: Bilateral Screening tomosynthesis and 2D mammography including computer-aided detection (CAD) when performed. COMPARISON: 1. MG DMDB DIG MAMM-DX CHIN W/CAD 10/12/2016 1:17 PM 2. MG DMDB DIG MAMM-DX CHIN 09/09/2016 1:26 PM FINDINGS: MAMMOGRAPHY: Breast composition: The breasts are extremely dense, which lowers the sensitivity of mammography. Mass: None. Architectural distortion: Questionable architectural distortion best seen on tomographic images in the middle third of the right upper outer quadrant Calcifications: No suspicious calcifications. Asymmetric density: None. Skin thickening: None. Axillary adenopathy: None. IMPRESSION: Patient to be recalled for spot compression views of the right breast in the CC and MLO projections, a full 90 degree lateral view, and right breast ultrasound for further evaluation of questionable architectural distortion. ASSESSMENT: BI-RADS Category 0: Incomplete- Need Additional Imaging Evaluation and/or Prior Mammograms for Comparison
== END ==
PROVIDERS: PCP Emergency Medicine; Visit Provider Emergency Medicine
DX: Z12.31 Encounter for screening mammogram for malignant neoplasm of breast (principal)
CPT/HCPCS: 77063; 77067

== ENCOUNTER → 2023-09-14 02:00 | Outpatient (CLI) | payer BC, SELFPAY ==
[2023-09-14 19:58] LABS: Barbiturates Screen,Urine Negative ng/ml (<200)
[2023-09-14 19:59] LABS: Amphetamine/Metha Screen,Urine Negative ng/ml (<1000); Benzodiazepines Screen,Urine Negative ng/ml (<200)
[2023-09-14 20:00] LABS: Cocaine Screen,Urine Negative ng/ml (<300); Methadone Screen,Urine Negative ng/ml (<300)
[2023-09-14 20:01] LABS: Cannabinoid Screen,Urine Negative ng/ml (<50)
[2023-09-14 20:02] LABS: Opiate Screen,Urine Positive ng/ml (<300)
[2023-09-14 20:03] LABS: Phencyclidine Screen,Urine Negative ng/ml (<25)
== END ==
PROVIDERS: PCP Internal Medicine; Visit Provider Internal Medicine
DX: Z79.899 Other long term (current) drug therapy (principal)
CPT/HCPCS: 80305

== ENCOUNTER 2023-10-10 11:40 | Outpatient (CLI) | payer BC, SELFPAY ==
[2023-10-10 14:50] LABS: Amphetamine/Metha Screen,Urine Negative ng/ml (<1000); Barbiturates Screen,Urine Negative ng/ml (<200); Benzodiazepines Screen,Urine Positive ng/ml (<200); Cannabinoid Screen,Urine Negative ng/ml (<50); Cocaine Screen,Urine Negative ng/ml (<300); Methadone Screen,Urine Negative ng/ml (<300); Opiate Screen,Urine Positive ng/ml (<300); Phencyclidine Screen,Urine Negative ng/ml (<25)
[2023-10-10 18:37] LABS: Creatinine,Urine Random 81 mg/dL (Not Estab.)
[2023-10-10 18:39] LABS: Microalbumin/Creatinine Ratio 19.7
[2023-10-10 19:19] LABS: Basophils % 0.3 % (0.1-2.0); Eosinophils # 0.1 K/mm3 (0.0-0.4); Eosinophils % 1.6 % (0.1-12.0); Lymphocytes # 1.4 K/mm3 (0.7-4.5); Lymphocytes % 22.3 % (10-50); Mean Corpuscular Hemoglobin 17.4 pg (27.0-31.2); Mean Corpuscular Volume 66.8 fl (81-99); Mean Platelet Volume 13.8 fl (7.4-10.4); Monocytes # 0.4 K/mm3 (0.1-1.0); Monocytes % 6.5 % (1.7-9.3); Neutrophils # 4.4 K/mm3 (1.8-7.8); Neutrophils % 69.3 % (37.0-80.0); Platelet Count 129 K/mm3 (142-424); Red Blood Count 2.54 M/mm3 (4.20-5.40); White Blood Count 6.3 K/mm3 (4.8-10.8)
[2023-10-10 19:22] LABS: Alanine Aminotransferase 13 U/L (12-78); Albumin Level 3.7 g/dl (3.5-5.0); Albumin/Globulin Ratio 1.5 (1.1-1.8); Alkaline Phosphatase 86 U/L (38-126); Anion Gap 13.8 mEq/L (5-15); Aspartate Amino Transferase 36 U/L (14-36); Bilirubin,Total 0.6 mg/dl (0.2-1.3); Blood Urea Nitrogen 5 mg/dl (7-17); Carbon Dioxide 22 mmol/L (22.0-30.0); Chloride 102 mmol/L (98-107); Chol/HDL Ratio 3.2 (1-3.5); Cholesterol 94 mg/dl (140-200); Estimated Glomerular Filt Rate 125 ml/min (>60); GFR (African American) 151 ML/MIN (>60); Globulin 2.5 g/dL (1.3-3.2); Glucose 96 mg/dl (74-100); HDL Cholesterol 29 mg/dl (40-60); Potassium 3.8 mmoL/L (3.5-5.1); Sodium 134 mmol/L (136-145); Total Protein,Serum 6.2 g/dl (6.3-8.2); Triglycerides 48 mg/dl (30-150); VLDL Cholesterol 10 mg/dL (0-40)
[2023-10-10 19:36] LABS: Direct LDL Cholesterol 63.31 mg/dL (100-129)
[2023-10-10 19:40] LABS: Hemoglobin 4.4 g/dL (12.2-16.2)
== END 2023-10-10 23:59 ==
LOC: LAB.DROPOF 11:40
PROVIDERS: PCP Internal Medicine; Visit Provider Internal Medicine
DX: Z79.899 Other long term (current) drug therapy (principal); R53.83 Other fatigue
CPT/HCPCS: 80053; 80061; 80307; 82043; 82570; 85025

== ENCOUNTER 2023-10-10 17:45 | Outpatient (CLI) | payer BC, SELFPAY | END 2023-10-10 23:59 | LOC: LAB.DROPOF 17:46 | PROVIDERS: PCP Internal Medicine; Visit Provider Internal Medicine | DX: Z79.899 Other long term (current) drug therapy (principal) ==

== ENCOUNTER 2023-10-11 00:18 | Observation (INO) | payer BC, SELFPAY ==
[2023-10-11] VITALS (43 sets, daily range): BP systolic 118–156; BP diastolic 58–81; PULSE 81–110; RESP 15–20; TEMP 36.5–37.1; O2SAT 92–100; BMI 27.4; BMI 27.8
--- NOTE | 2023-10-11 00:24 | ED_ITS ---
Discharge Plan Disposition Patient Disposition: Admitted Chief Complaint: Recheck/Abnormal Lab/Rx Clinical Impressions Clinical Impression: Iron deficiency anemia, Lymphadenopathy, Tachycardia Discharge ED Provider: Enrrique Murry Adult HPI General Chief complaint: Recheck/Abnormal Lab/Rx Stated complaint: Abnormal blood work sent by Dr. Chao Time Seen by Provider: 10/11/23 00:24 History of Present Illness HPI narrative: 62-year-old female presents from home with abnormal labs. She reports that she has been feeling ill for the last couple of months. She reports she feels generally weak, short of breath, is having difficulty walking across the room secondary to shortness of breath. She reports no significant weight loss reports her diet and appetite have been normal. Her hemoglobin was noted to be 4 with PCP labs drawn earlier today and they told her to come to the ER. She reports that her brother just of leukemia. She reports that she has a lump under the left angle of the jaw that has been present for at least several wee ks. She also reports that she had some new lumps in her armpits recently. She reports that she had a normal colonoscopy for 5 years ago. She reports she had an abnormal mammogram this fall. Related Data Home Medications Medication Instructions Recorded Confirmed citalopram 40 mg tablet See Rx Instructions .Route 06/14/23 10/10/23 .COMPLEX MOOD famotidine 40 mg tablet See Rx Instructions .Route 06/14/23 10/10/23 .COMPLEX STOMACH lisinopril 10 mg tablet See Rx Instructions .Route 06/14/23 10/10/23 .COMPLEX BLOOD PRESSURE sod picosulf 10 mg-magnes 3.5 160 ml PO DAILY BOWELS 06/14/23 10/10/23 gram-citric 12 gram/160 mL oral solution (Clenpiq) Previous Rx's Medication Instructions Recorded ropinirole 0.25 mg tablet 0.25 mg PO HS #30 tabs 07/06/23 budesonide-formoterol HFA 80 See Rx Instructions .Route 07/12/23 mcg-4.5 mcg/actuation aerosol .COMPLEX #10.2 grams inhaler (Symbicort) albuterol sulfate 90 mcg/actuation 2 puff inhalation BID PRN 09/14/23 aerosol inhaler (Ventolin HFA) Breathing Problems #8.5 grams diazepam 5 mg tablet (Valium) 5 mg PO TID Anxiety 30 days #90 09/14/23 tabs oxycodone-acetaminophen 10 mg-325 1 tab PO TID Pain #90 tabs 09/14/23 mg tablet (Percocet) ipratropium 0.5 mg-albuterol 3 mg See Rx Instructions .Route 10/10/23 (2.5 mg base)/3 mL nebulization .COMPLEX #180 mL soln Allergies Allergy/AdvReac Type Severity Reaction Status Date / Time hydrocodone Allergy Intermediate Hives Verified 10/10/23 10:38 omeprazole [From Prilosec] Allergy Intermediate Rash Verified 10/10/23 10:38 duloxetine [From CYMBALTA] Allergy Unknown I-HIVES Verified 10/10/23 10:38 penicillin G [PENICILLIN G] Allergy Unknown I-HIVES Verified 10/10/23 10:38 Sulfa (Sulfonamide Allergy Unknown I-HIVES Verified 10/10/23 10:38 Antibiotics) [SULFA (SULFONAMIDE ANTIBIOTICS)] [facility] Disclaimer: The information contained in this section may have been updated after the ralph stevens was seen, as this information can be updated by other users. Medical History History of anxiety History of depression History of foot drop History of gastroesophageal reflux (GERD) Hx of fracture of patella Hx of fracture of wrist Surgical History History of back surgery History of bladder surgery several History of cholecystectomy History of colonoscopy History of hysterectomy History of meniscectomy of left knee Hx of meniscectomy of right knee Family History Other Family history of diabetes mellitus type II Family history of hyperlipidemia Family history of hypertension Family history of stroke Social History Smoking Status: Never smoker alcohol intake: current substance use type: denies use, former substance user and methamphetamine current occupational status: disabled Travel in the last 8 weeks: None adopted: No household members: family housing: house lives independently: Yes marital status: education level: high school special sejal needs: No agree to transfusion: No do you feel safe at home: Yes victim of physical abuse: No victim of emotional abuse: No victim of sexual abuse: No would you like helpful sources: No ROS Obtained: Yes All systems reviewed & no additional complaints except as documented Physical Exam General General appearance: alert and in no apparent distress Comment: Pale Head Head exam: atraumatic and normocephalic Eye Eye exam: Present PERRL, EOMI and other (Pale conjunctive) ENT ENT exam: Present normal oropharynx and normal external ear exam Neck Neck exam: Present full ROM and other (Large firm swelling under the left angle of the jaw.) Chest Chest inspection: Present normal inspection and symmetric chest wall rise; Absent tenderness Respiratory Respiratory exam: Present normal lung sounds bilaterally; Absent respiratory distress Cardiovascular Cardiovascular exam: Present normal rhythm and tachycardia Abdominal Exam Abdominal exam: Present soft; Absent distention, tenderness or guarding Extremities Exam Extremities exam: Present normal inspection; Absent edema or joint swelling Back Exam Back exam: Present normal inspection; Absent tenderness Neurological Exam Neurological exam: Present alert and oriented X3; Absent motor sensory deficit Psychiatric Psychiatric exam: Present normal affect and normal mood Skin Skin exam: Present warm, dry and normal color Lymphatic Lymphatic Findings: no adenopathy, L axilla node enlarged and R axilla node enlarged Medical Decision Making Medical Records Medical records reviewed: Yes I reviewed the patient's medical records. Adarsh Inquiry Pt receiving controlled substance: No Adarsh was queried for this patient: No Vital Signs: 10/11/23 00:21 Temperature 97.9 F Temperature Source Oral Pulse Rate [Right Radial] 86 Respiratory Rate 20 Blood Pressure [Right Arm] 150/70 H Blood Pressure Mean [Right Arm] 96 02 Sat by Pulse Oximetry 92 L Oxygen Delivery Method Room Air Lab Data Lab results reviewed: Yes I reviewed the patient's lab results. Lab Results 10/11/23 00:37: WBC 7.0, RBC 2.33 L, Hgb 4.0 L*, Hct 15.3 L*, MCV 65.5 L, MCH 17.3 L, MCHC 26.4 L, RDW 21.0 H, Plt Count 130 L, MPV 12.7 H, Neut % (Auto) 70.7, Lymph % (Auto) 22.5, [place] % (Auto) 4.4, Eos % (Auto) 2.0, Baso % (Auto) 0.4, Neut # (Auto) 5.0, Lymph # (Auto) 1.6, [place] # (Auto) 0.3, Eos # (Auto) 0.1, Baso # (Auto) 0.0, Retic Count (auto) 2.4, PT 10.8, INR 1.00, APTT 20.7 L, Sodium 134 L, Potassium 3.8, Chloride 99, Carbon Dioxide 25, Anion Gap 13.8, BUN 5 L, Creatinine 0.60, Estimated Creat Clear 62, Estimated GFR 101, Est GFR ( Amer) 122, Glucose 106 H, Calcium 8.4, Iron 21 L, TIBC 419, Iron Saturation 5.08046 L, Total Bilirubin 0.6, AST 19 D, ALT 13, Alkaline Phosphatase 85, Total Protein 6.3, Albumin 3.8, Globulin 2.5, Albumin/Globulin Ratio 1.5, TSH 0.38 L, Thyroxine (T4) 10.0, Crossmatch (AHG) See Detail 10/11/23 00:37 10/11/23 00:37 Orders (Tests/Meds): ED MEDICATIONS Generic Name Dose Route Start Last Admin Trade Name Freq PRN Reason Stop Dose Admin Acetaminophen 650 mg 10/11/23 01:36 Acetaminophen 325mg Tab PO 11/10/23 01:35 Q4HP PRN Fever or Mild Pain (1-3) Sodium Chloride 250 mls @ 25 mls/hr 10/11/23 00:45 Sod Chlor 0.9% 250ml Bag IV 10/12/23 00:44 .Q10H TYESHA Lactated Ringer's 1,000 mls @ 50 mls/hr 10/11/23 01:45 Lactated Ringer's 1000 Ml Bag IV 11/10/23 01:44 .Q20H TYESHA Sodium Chloride 250 mls @ 25 mls/hr 10/11/23 01:45 Sod Chlor 0.9% 250ml Bag IV 10/12/23 01:44 .Q10H TYESHA ORDERS Category Date Time Status Transfuse RBC's [Red Blood Cells] Stat BBK 10/11/23 00:37 Received Type and Screen Stat BBK 10/11/23 00:37 Received CXR --portable [XR chest portable] Stat Exams 10/11/23 00:45 Completed Basic Metabolic Panel AMLAB Lab 10/11/23 06:00 Ordered CBC w/Auto Diff [Complete Blood Count Auto Diff] Stat Lab 10/11/23 00:37 Results CMP [Comprehensive Metabolic Panel] Stat Lab 10/11/23 00:37 Completed Complete Blood Count Auto Diff AMLAB Lab 10/11/23 06:00 Ordered Ferritin Stat Lab 10/11/23 00:37 Received Haptoglobin Stat Lab 10/11/23 00:37 Received INR [Prothrombin Time INR] Stat Lab 10/11/23 00:37 Completed Iron and TIBC Stat Lab 10/11/23 00:37 Completed Magnesium AMLAB Lab 10/11/23 06:00 Ordered PTT [Activated Partial Thrombo Time] Stat Lab 10/11/23 00:37 Completed Peripheral Smear Review Stat Lab 10/11/23 00:37 Results Reticulocyte % (Auto) Stat Lab 10/11/23 00:37 Results T4 (Thyroxine) Stat Lab 10/11/23 00:37 Completed TSH [Thyroid Stimulating Hormone] Stat Lab 10/11/23 00:37 Completed Medical Decision Narrative: 62-year-old female, presentation complicated by history of COPD presents with critical anemia from home.. History was obtained via conversation with patient, chart review. On arrival, patient is afebrile, mildly tachycardic, satting appropriately on room air, alert and oriented x 4 GCS 15, moving all extremities spontaneously. Full physical exam performed and significant for pale mucous membranes, axillary lymphadenopathy, left cervical lymphadenopathy Differential includes but is not limited to iron deficiency anemia, anemia of chronic disease, hematologic malignancy, GI bleed,. Workup initiated including CBC with differential, peripheral smear, iron studies, TSH T4, chest x-ray, CMP type and screen. On re-evaluation, patient patient remains afebrile, hemodynamically stable. Laboratory workup independently interpreted by me and significant for findings consistent with severe iron deficiency anemia. Hemoglobin 4.0, iron 21, iron saturation 5%. Imaging independently interpreted by me and significant for stable chest x-ray from prior, no new focal opacity. See radiology read for full review of final results. Transfusion was ordered. Interactive discussion was had with the hospitalist on-call for admission for further evaluation and management of anemia. Procedures Risk/Benefits of Procedure(s) Were Explained: Yes Critical Care Critical Care Time Critical Care Time: No
--- NOTE | 2023-10-11 00:28 | ECG_ITS ---
APPROVED REPORT Exam: Resting ECG HR:105 bpm ECG Measurements Heart Rate 105 AXES MN 173 P 41 QRSd 86 QRS 66 QT 337 T -9 QTc [address] DEVIATION AND MODERATE T-WAVE ABNORMALITY, CONSIDER INFERIOR ISCHEMIA [-0.1+ mV T-WAVE IN II/aVF] ABNORMAL ECG UNCONFIRMED REPORT Electronically signed by : Jonny Scott MD 10/11/2023 13:08:34
--- NOTE | 2023-10-11 00:45 | XR_ITS ---
PROCEDURE INFORMATION: Exam: XR Chest Exam date and time: 10/11/2023 1:02 AM Age: 62 years old Clinical indication: Shortness of breath; Additional info: Anemia, SOB, lymphadenopathy TECHNIQUE: Imaging protocol: Radiologic exam of the chest. Views: 1 view. COMPARISON: CR XR CHEST 2V 08/22/2022 3:53 PM FINDINGS: Limitations: The patient is wearing a bra which minimally limits the study. Lungs: No evidence of acute pulmonary disease or infiltrates; lung arita appear clear. Pleural spaces: No large effusion or pneumothorax. Heart/Mediastinum: Stable cardiac and mediastinal contours. Vasculature: There are calcifications of the aortic arch. Bones/joints: Extensive surgical hardware of the thoracolumbar spine. Other findings: The patient is rotated on the examination which somewhat alters the expected anatomic relationships and limits the study. IMPRESSION: No dense parenchymal consolidation, pleural effusion, or pneumothorax.
[2023-10-11 00:54] LABS: Basophils % 0.4 % (0.1-2.0); Eosinophils # 0.1 K/mm3 (0.0-0.4); Lymphocytes # 1.6 K/mm3 (0.7-4.5); Lymphocytes % 22.5 % (10-50); Mean Corpuscular HGB Conc 26.4 g/dL (31.8-35.4); Mean Corpuscular Hemoglobin 17.3 pg (27.0-31.2); Mean Corpuscular Volume 65.5 fl (81-99); Mean Platelet Volume 12.7 fl (7.4-10.4); Monocytes # 0.3 K/mm3 (0.1-1.0); Monocytes % 4.4 % (1.7-9.3); Neutrophils % 70.7 % (37.0-80.0); Platelet Count 130 K/mm3 (142-424); Red Blood Count 2.33 M/mm3 (4.20-5.40); Reticulocyte % (Auto) 2.4 % (0.9-3.2)
[2023-10-11 00:58] LABS: Chloride 99 mmol/L (98-107); Potassium 3.8 mmoL/L (3.5-5.1); Sodium 134 mmol/L (136-145)
[2023-10-11 01:00] LABS: Blood Urea Nitrogen 5 mg/dl (7-17); Creatinine Clearance Estimated 62 mL/min (50-200); Estimated Glomerular Filt Rate 101 ml/min (>60); GFR (African American) 122 ML/MIN (>60)
[2023-10-11 01:01] LABS: Alanine Aminotransferase 13 U/L (12-78); Albumin Level 3.8 g/dl (3.5-5.0); Albumin/Globulin Ratio 1.5 (1.1-1.8); Alkaline Phosphatase 85 U/L (38-126); Anion Gap 13.8 mEq/L (5-15); Aspartate Amino Transferase 19 U/L (14-36); Bilirubin,Total 0.6 mg/dl (0.2-1.3); Calcium 8.4 mg/dl (8.4-10.2); Carbon Dioxide 25 mmol/L (22.0-30.0); Globulin 2.5 g/dL (1.3-3.2); Glucose 106 mg/dl (74-100); Iron 21 ug/dL (37-170); Total Protein,Serum 6.3 g/dl (6.3-8.2)
[2023-10-11 01:10] LABS: Total Iron Binding Capacity 419 ug/dL (265-497)
[2023-10-11 01:15] LABS: Activated Partial Thrombo Time 20.7 seconds (22.8-30.6); Prothrombin Time 10.8 seconds (10.1-12.5)
[2023-10-11 01:34] LABS: Thyroid Stimulating Hormone 0.38 uIU/mL (0.465-4.68)
--- NOTE | 2023-10-11 02:01 | EXP.HP ---
History of Present Illness *Admission Date: 10/11/23 *Reason for visit:: Generalized weakness *History of present illness: This is a very pleasant 62-year-old female with a past medical history of HTN, COPD,, GERD who presents emergency department today with complaints of feeling generally ill for the last couple months. She reports shortness of breath and generally weak when walking because the room. She states that she is feels rundown. She denies any cough or chest pain. She does endorse new lumps in her armpits recently and a lump under the left jaw. She reports recent colonoscopy that was normal with an abnormal mammogram several months ago but she has not had follow-up for yet. She does endorse a familial history of leukemia, states that her brother just from this. Emergency Department workup significant for anemia with a hemoglobin of 4. Iron labs suggestive of iron deficiency anemia. She has been transfused 1 unit PRBCs and will be admitted to the hospital service for further evaluation. [facility] Disclaimer: The information contained in this section may have been updated after the patient was seen, as this information can be updated by other users. Medical History (Updated 10/11/23 @ 03:03 by Mirta Thomas RN) History of anxiety History of depression History of foot drop History of gastroesophageal reflux (GERD) Hx of fracture of patella Hx of fracture of wrist Surgical History (Updated 10/11/23 @ 03:04 by Mirta Thomas RN) History of back surgery History of bladder surgery History of cholecystectomy History of colonoscopy History of hysterectomy History of meniscectomy of left knee Hx of knee surgery Hx of meniscectomy of right knee Family History Other Family history of diabetes mellitus type II Family history of hyperlipidemia Family history of hypertension Family history of stroke Social History Smoking Status: Never smoker alcohol intake: current substance use type: denies use, former substance user and methamphetamine current occupational status: disabled Travel in the last 8 weeks: None adopted: No household members: family housing: house lives independently: Yes marital status: education level: high school special sejal needs: No agree to transfusion: No do you feel safe at home: Yes victim of physical abuse: No victim of emotional abuse: No victim of sexual abuse: No would you like helpful sources: No Review of Systems Review of Systems Review of systems:: pertinent systems reviewed and negative unless documented below Meds Home Medications and Allergies Home Medications Medication Instructions Recorded Confirmed Type citalopram 40 mg tablet See Rx Instructions .Route 06/14/23 10/11/23 History .COMPLEX MOOD famotidine 40 mg tablet See Rx Instructions .Route 06/14/23 10/11/23 History .COMPLEX STOMACH lisinopril 10 mg tablet See Rx Instructions .Route 06/14/23 10/11/23 History .COMPLEX BLOOD PRESSURE ropinirole 0.25 mg tablet 0.25 mg PO HS #30 tabs 07/06/23 10/11/23 Rx budesonide-formoterol HFA 80 See Rx Instructions .Route 07/12/23 10/11/23 Rx mcg-4.5 mcg/actuation aerosol .COMPLEX #10.2 grams inhaler (Symbicort) albuterol sulfate 90 mcg/actuation 2 puff inhalation BID PRN 09/14/23 10/11/23 Rx aerosol inhaler (Ventolin HFA) Breathing Problems #8.5 grams diazepam 5 mg tablet (Valium) 5 mg PO TID Anxiety 30 days #90 09/14/23 10/10/23 Rx tabs oxycodone-acetaminophen 10 mg-325 1 tab PO TID Pain #90 tabs 09/14/23 10/11/23 Rx mg tablet (Percocet) ipratropium 0.5 mg-albuterol 3 mg See Rx Instructions .Route 10/10/23 10/11/23 Rx (2.5 mg base)/3 mL nebulization .COMPLEX #180 mL soln New Prescriptions to Start Prescriptions: Allergies Allergy/AdvReac Type Severity Reaction Status Date / Time hydrocodone Allergy Intermediate Hives Verified 10/10/23 10:38 omeprazole [From Prilosec] Allergy Intermediate Rash Verified 10/10/23 10:38 duloxetine [From CYMBALTA] Allergy Unknown I-HIVES Verified 10/10/23 10:38 penicillin G [PENICILLIN G] Allergy Unknown I-HIVES Verified 10/10/23 10:38 Sulfa (Sulfonamide Allergy Unknown I-HIVES Verified 10/10/23 10:38 Antibiotics) [SULFA (SULFONAMIDE ANTIBIOTICS)] Exam Data for Last 24 hours Vital signs and Labs for Last 24 Hours: Temp Pulse Resp BP Pulse Ox O2 Del Method 97.9 F 86 20 150/70 H 92 L Room Air 10/11/23 00:21 10/11/23 00:21 10/11/23 00:21 10/11/23 00:21 10/11/23 00:21 10/11/23 00:21 Laboratory Results - last 24 hr 10/11/23 00:37: WBC 7.0, RBC 2.33 L, Hgb 4.0 L*, Hct 15.3 L*, MCV 65.5 L, MCH 17.3 L, MCHC 26.4 L, RDW 21.0 H, Plt Count 130 L, MPV 12.7 H, Neut % (Auto) 70.7, Lymph % (Auto) 22.5, [place] % (Auto) 4.4, Eos % (Auto) 2.0, Baso % (Auto) 0.4, Neut # (Auto) 5.0, Lymph # (Auto) 1.6, [place] # (Auto) 0.3, Eos # (Auto) 0.1, Baso # (Auto) 0.0, Retic Count (auto) 2.4, PT 10.8, INR 1.00, APTT 20.7 L, Sodium 134 L, Potassium 3.8, Chloride 99, Carbon Dioxide 25, Anion Gap 13.8, BUN 5 L, Creatinine 0.60, Estimated Creat Clear 62, Estimated GFR 101, Est GFR ( Amer) 122, Glucose 106 H, Calcium 8.4, Iron 21 L, TIBC 419, Iron Saturation 5.09243 L, Total Bilirubin 0.6, AST 19 D, ALT 13, Alkaline Phosphatase 85, Total Protein 6.3, Albumin 3.8, Globulin 2.5, Albumin/Globulin Ratio 1.5, TSH 0.38 L, Thyroxine (T4) 10.0, Blood Type A Positive, Antibody Screen Negative, Crossmatch (AHG) See Detail I & O for Last 24 hours: Intake & Output 10/08/23 10/09/23 10/10/23 10/11/23 23:59 23:59 23:59 23:59 Weight 68.039 kg Constitutional Constitutional: no acute distress *Routine HEENT Exam Head: Present normocephalic and atraumatic Eye: Present EOMI and PERRL ENT: Present mucous membranes moist *Routine Neck Exam Neck: Present supple and full ROM *Routine Respiratory Exam Respiratory: Present normal respiratory effort and symmetric chest movement *Routine Cardiovascular Exam Cardiovascular: Present RRR, Normal S1 and Normal S2 *Routine Abdominal Exam Abdominal: Present soft and normoactive bowel sounds *Routine Rectal Exam Rectal:: normal sphincter tone *Routine Genitalia Exam Genitalia:: deferred *Routine Extremities Exam Extremities: Present full ROM and normal capillary refill *Routine Skin Exam Skin: Present intact *Routine Neurological Exam Neurological: Present alert, oriented X3 and CN II-XII intact Assessment and Plan *Assessment and plan (1) Iron deficiency anemia: Status: Acute Qualifiers: Iron deficiency anemia type: unspecified iron deficiency Qualified Code(s): D50.9 - Iron deficiency anemia, unspecified Category: Medical Code(s): D50.9 - Iron deficiency anemia, unspecified (2) Lymphadenopathy: Status: Acute Category: Medical Code(s): R59.1 - Generalized enlarged lymph nodes (3) Tachycardia: Status: Acute Category: Medical Code(s): R00.0 - Tachycardia, unspecified (4) COPD (chronic obstructive pulmonary disease): Problem Comment: I made a mistake at the last visit and dictated that she was still smoking. Barbra has never smoked. She has history of secondhand smoke as well as some viral infections that have caused her to have COPD. Status: Acute Qualifiers: COPD type: unspecified COPD Qualified Code(s): J44.9 - Chronic obstructive pulmonary disease, unspecified Category: Medical Code(s): J44.9 - Chronic obstructive pulmonary disease, unspecified Plan This is a 62-year-old female with past medical history of COPD, GERD, hypertension who presents emergency department today with complaints of generalized weakness. She was found to have a hemoglobin of 4 with what appears to be iron deficiency anemia. Microcytic anemia Iron saturation of 5 with a iron level of 21 likely revealing RYANN Hemoglobin of 4, will transfuse 3 units PRBCs now Lymphadenopathy Submandibular lymphadenopathy as well as axilla Known to patient and being worked up outpatient. Patient's brother did have leukemia so this is concerning for patient. I believe she is scheduled for outpatient MRI of head and neck. Chronic obstructive pulmonary disease Currently stable, continue patient's home bronchodilators Chronic pain Continue home patient medications DVT PPx SCDs Full code Rounded on patient after nurse practitioner. Personally examined and interviewed patient. Agree with exam findings and care plan as documented. Unclear etiology, suspect component of GI loss. Surgery consulted. Plan for EGD later today. Initiated on famotidine. Repeat labs pending transfusion. Will need iron infusion before discharge home.
[2023-10-11 03:34] LABS: Ferritin 3.17 ng/ml (11.1-264)
[2023-10-11] MEDS: ACETAMINOPHEN 325MG TAB 650 MG PO ×2 (03:37→16:21)
[2023-10-11] MEDS: LACTATED RINGERS 1000ML 1,000 ML 50 ML IV ×2 (04:40→21:35)
--- NOTE | 2023-10-11 08:07 | PC.NURSE ---
Patient was on unit 2/3 of blood. Patient blood was verified with Tomas Guerrero RN. When This RN went back to put in vitals the Verification did not go through. RN attempted to reverify but It would not let me put in vitals without the previtals, even though they were already in. RN called lab and they stated to put in a note and they would fix the issue on there end. Pre Vitals 0622- 126/67, RR 16, o2 97, Pulse 93, Temp 98.3 Start vitals 0635- 131/68, RR 18 o2 98, Pulse 95, temp 98.5 5 min vital 0640- 132/69, RR 14, o2 99, Pulse 96 Temp 98.5 10min Vital 0645- 121/65, RR 14, o2 99, Pulse 94 Temp 98.4 15min Vitals 0650 - 127/68, RR 16, o298, Pulse 96 Temp 98.5 30min vitals 0705- 134/63 RR 15, O2 98, Pulse 94, Temp 98.1 45min vital 0720- 139/77 RR 16 O2 96, pulse 96, Temp 98.2 60min vital 0735- 137/75 RR 15 O2 94, Pulse 95, temp 98.4 Blood was still infusing with this RN left shift.
[2023-10-11 08:44] LABS: Hematocrit 15.3 % (37.0-47.0)
--- NOTE | 2023-10-11 08:47 | P.CONS_ITS ---
History of Present Illness *Admission Date: 10/11/23 *Reason for visit:: Anemia *History of present illness: This is a 62-year-old female seen in consultation from the primary service for evaluation regarding anemia from suspected subacute/chronic gastrointestinal loss. She reports that she had a normal colonoscopy approximately 3 years ago at an outside facility. Forwarded from admission H&P: This is a very pleasant 62-year-old female with a past medical history of HTN, COPD,, GERD who presents emergency department today with complaints of feeling generally ill for the last couple months. She reports shortness of breath and generally weak when walking because the room. She states that she is feels rundown. She denies any cough or chest pain. She does endorse new lumps in her armpits recently and a lump under the left jaw. She reports recent colonoscopy that was normal with an abnormal mammogram several months ago but she has not had follow-up for yet. She does endorse a familial history of leukemia, states that her brother just from this. Emergency Department workup significant for anemia with a hemoglobin of 4. Iron labs suggestive of iron deficiency anemia. She has been transfused 1 unit PRBCs and will be admitted to the hospital service for further evaluation. [facility] Disclaimer: The information contained in this section may have been updated after the patient was seen, as this information can be updated by other users. Medical History (Updated 10/11/23 @ 03:03 by Mirta Thomas RN) History of anxiety History of depression History of foot drop History of gastroesophageal reflux (GERD) Hx of fracture of patella Hx of fracture of wrist Surgical History (Updated 10/11/23 @ 03:04 by Mirta Thomas RN) History of back surgery History of bladder surgery History of cholecystectomy History of colonoscopy History of hysterectomy History of meniscectomy of left knee Hx of knee surgery Hx of meniscectomy of right knee Family History Other Family history of diabetes mellitus type II Family history of hyperlipidemia Family history of hypertension Family history of stroke Social History Smoking Status: Never smoker alcohol intake: current substance use type: denies use, former substance user and methamphetamine current occupational status: disabled Travel in the last 8 weeks: None adopted: No household members: family housing: house lives independently: Yes marital status: education level: high school special sejal needs: No agree to transfusion: No do you feel safe at home: Yes victim of physical abuse: No victim of emotional abuse: No victim of sexual abuse: No would you like helpful sources: No Meds Home Medications and Allergies Home Medications Medication Instructions Recorded Confirmed Type citalopram 40 mg tablet See Rx Instructions .Route 06/14/23 10/11/23 History .COMPLEX MOOD famotidine 40 mg tablet See Rx Instructions .Route 06/14/23 10/11/23 History .COMPLEX STOMACH lisinopril 10 mg tablet See Rx Instructions .Route 06/14/23 10/11/23 History .COMPLEX BLOOD PRESSURE ropinirole 0.25 mg tablet 0.25 mg PO HS #30 tabs 07/06/23 10/11/23 Rx budesonide-formoterol HFA 80 See Rx Instructions .Route 07/12/23 10/11/23 Rx mcg-4.5 mcg/actuation aerosol .COMPLEX #10.2 grams inhaler (Symbicort) albuterol sulfate 90 mcg/actuation 2 puff inhalation BID PRN 09/14/23 10/11/23 Rx aerosol inhaler (Ventolin HFA) Breathing Problems #8.5 grams diazepam 5 mg tablet (Valium) 5 mg PO TID Anxiety 30 days #90 09/14/23 10/10/23 Rx tabs oxycodone-acetaminophen 10 mg-325 1 tab PO TID Pain #90 tabs 09/14/23 10/11/23 Rx mg tablet (Percocet) ipratropium 0.5 mg-albuterol 3 mg See Rx Instructions .Route 10/10/23 10/11/23 Rx (2.5 mg base)/3 mL nebulization .COMPLEX #180 mL soln New Prescriptions to Start Prescriptions: Allergies Allergy/AdvReac Type Severity Reaction Status Date / Time hydrocodone Allergy Intermediate Hives Verified 10/10/23 10:38 omeprazole [From Prilosec] Allergy Intermediate Rash Verified 10/10/23 10:38 duloxetine [From CYMBALTA] Allergy Unknown I-HIVES Verified 10/10/23 10:38 penicillin G [PENICILLIN G] Allergy Unknown I-HIVES Verified 10/10/23 10:38 Sulfa (Sulfonamide Allergy Unknown I-HIVES Verified 10/10/23 10:38 Antibiotics) [SULFA (SULFONAMIDE ANTIBIOTICS)] Exam (Inpt) Vital signs and Labs for Last 24 Hours: Temp Pulse Resp BP Pulse Ox O2 Del Method 98.5 F 95 H 18 131/68 98 Room Air 10/11/23 06:35 10/11/23 06:35 10/11/23 06:35 10/11/23 06:35 10/11/23 06:35 10/11/23 07:00 Laboratory Results - last 24 hr 10/11/23 00:37: WBC 7.0, RBC 2.33 L, Hgb 4.0 L*, Hct 15.3 L*, MCV 65.5 L, MCH 17.3 L, MCHC 26.4 L, RDW 21.0 H, Plt Count 130 L, MPV 12.7 H, Neut % (Auto) 70.7, Lymph % (Auto) 22.5, [place] % (Auto) 4.4, Eos % (Auto) 2.0, Baso % (Auto) 0.4, Neut # (Auto) 5.0, Lymph # (Auto) 1.6, [place] # (Auto) 0.3, Eos # (Auto) 0.1, Baso # (Auto) 0.0, Retic Count (auto) 2.4, PT 10.8, INR 1.00, APTT 20.7 L, Sodium 134 L, Potassium 3.8, Chloride 99, Carbon Dioxide 25, Anion Gap 13.8, BUN 5 L, Creatinine 0.60, Estimated Creat Clear 62, Estimated GFR 101, Est GFR ( Amer) 122, Glucose 106 H, Calcium 8.4, Iron 21 L, TIBC 419, Iron Saturation 5.02467 L, Ferritin 3.17 L, Total Bilirubin 0.6, AST 19 D, ALT 13, Alkaline Phosphatase 85, Total Protein 6.3, Albumin 3.8, Globulin 2.5, Albumin/Globulin Ratio 1.5, TSH 0.38 L, Thyroxine (T4) 10.0, Blood Type A Positive, Blood Type Confirm A Positive, Antibody Screen Negative, Crossmatch (A HG) See Detail I & O for Labs for Last 24 Hours: Intake & Output 10/08/23 10/09/23 10/10/23 01/10/24 11:59 11:59 11:59 11:59 Intake Total 250 / 250 Balance 250 / 250 Weight 151 lb 9.6 oz Constitutional: no acute distress Respiratory: Absent respiratory distress Cardiac: Absent Tachycardia GI: Present soft Results Labs 10/11/23 00:37 10/11/23 00:37 Labs: Laboratory Results - last 24 hr 10/11/23 00:37: WBC 7.0, RBC 2.33 L, Hgb 4.0 L*, Hct 15.3 L*, MCV 65.5 L, MCH 17.3 L, MCHC 26.4 L, RDW 21.0 H, Plt Count 130 L, MPV 12.7 H, Neut % (Auto) 70.7, Lymph % (Auto) 22.5, [place] % (Auto) 4.4, Eos % (Auto) 2.0, Baso % (Auto) 0.4, Neut # (Auto) 5.0, Lymph # (Auto) 1.6, [place] # (Auto) 0.3, Eos # (Auto) 0.1, Baso # (Auto) 0.0, Retic Count (auto) 2.4, PT 10.8, INR 1.00, APTT 20.7 L, Sodium 134 L, Potassium 3.8, Chloride 99, Carbon Dioxide 25, Anion Gap 13.8, BUN 5 L, Creatinine 0.60, Estimated Creat Clear 62, Estimated GFR 101, Est GFR ( Amer) 122, Glucose 106 H, Calcium 8.4, Iron 21 L, TIBC 419, Iron Sa turation 5.12718 L, Ferritin 3.17 L, Total Bilirubin 0.6, AST 19 D, ALT 13, Alkaline Phosphatase 85, Total Protein 6.3, Albumin 3.8, Globulin 2.5, Albumin/Globulin Ratio 1.5, TSH 0.38 L, Thyroxine (T4) 10.0, Blood Type A Positive, Blood Type Confirm A Positive, Antibody Screen Negative, Crossmatch (AHG) See Detail Assessment and Plan *Assessment and plan (1) Iron deficiency anemia: Status: Acute Qualifiers: Iron deficiency anemia type: unspecified iron deficiency Qualified Code(s): D50.9 - Iron deficiency anemia, unspecified Category: Medical Code(s): D50.9 - Iron deficiency anemia, unspecified Plan: Proton pump inhibition Continue transfusions as per primary service Esophagogastroduodenoscopy planned for later today I have discussed the risks and benefits including, but not limited to: Bleeding Infection Damage to surrounding tissue Inherent risks of sedation The patient agrees to proceed.
[2023-10-11] MEDS: LISINOPRIL 10MG TABLET 10 MG PO (08:53)
--- NOTE | 2023-10-11 09:16 | PC.NURSE ---
2nd unit of blood ended at 0912.
[2023-10-11] MEDS: FAMOTIDINE 20MG/2ML VIAL 20 MG IV ×2 (09:44→21:06)
[2023-10-11] MEDS: 0.9 % SODIUM CHLORIDE 250 ML 25 ML IV (09:50)
--- NOTE | 2023-10-11 11:35 | EXP.ANES.CKL ---
[facility] Disclaimer: The information contained in this section may have been updated after the patient was seen, as this information can be updated by other users. Medical History History of anxiety History of depression History of foot drop History of gastroesophageal reflux (GERD) Hx of fracture of patella Hx of fracture of wrist Surgical History (Updated 10/11/23 @ 03:04 by Mirta Thomas RN) History of back surgery History of bladder surgery History of cholecystectomy History of colonoscopy History of hysterectomy History of meniscectomy of left knee Hx of knee surgery Hx of meniscectomy of right knee Family History Other Family history of diabetes mellitus type II Family history of hyperlipidemia Family history of hypertension Family history of stroke Social History Smoking Status: Never smoker alcohol intake: current substance use type: denies use, former substance user and methamphetamine current occupational status: disabled Travel in the last 8 weeks: None adopted: No household members: family housing: house lives independently: Yes marital status: education level: high school special sejal needs: No agree to transfusion: No do you feel safe at home: Yes victim of physical abuse: No victim of emotional abuse: No victim of sexual abuse: No would you like helpful sources: No [facility] Anesthesia Checklist Patient Identification Patient Identification: Arm Band Structural Data Admitted From: Home Planned Operative Procedure/s: EGD Consent for Planned Operative Procedure(s) Verified: Yes Verified Documents: Surgical Consent and History and Physical NPO Status Verified Time NPO: 00:00 Additional verifications Anesthesia Reactions: No Hx Blood Transfusions: No Blood Transfusion Reaction: No Airway Assessment Mallampati Score:: Class II C-Spine Mobility Assessed: Yes TMJ Mobility Assessed: Yes Dentition: Poor Dentition (nothing loose or missing per pt.) Neurological Assessment Level of Consciousness: Awake and Alert Anesthesia Plan Anesthesia Risk discussed: Yes Anesthesia Plan: Verified ASA Class: III Anesthesia Type: MAC
--- NOTE | 2023-10-11 12:03 | HMH.PHAINT1 ---
Pharmacy Intervention Comments: Home med list verified with external pharmacy list and with current med list sent from primary care physician's office.
--- NOTE | 2023-10-11 12:11 | HMH.SCOPE ---
Procedure: Date: 10/11/23 Patient Date of :: 1960 Procedure Performed:: Esophagogastroduodenoscopy with biopsy and epinephrine injection Indications:: Anemia Performing Provider:: Mykel Johnson MD Referring Provider:: . Sedation:: Monitored anesthesia care Procedure:: After informed consent was obtained the patient was taken to the endoscopy suite. Sedation ensued after the patient was transferred to the left lateral decubitus position. Pulse, blood pressure, and oxygen saturation were monitored throughout the procedure. The endoscope was advanced beyond the duodenal bulb. Retroflexion within the gastric lumen was accomplished. The gastroscope was carefully removed and the patient was transferred to recovery in stable condition. Please see findings and specimens below for detail. Findings:: Linear ulcerative lesion at gastroesophageal junction with persistent sanguinous ooze (Raina-Geiger tear, true ulcer, or atypical Timoteo lesion) Sanguinous ooze controlled with epinephrine injection (10 mL) Sliding hiatal hernia Specimens:: Antral biopsy Recommendations:: Follow-up pathology Serial hemoglobin/hematocrit Transfuse if when needed May require repeat endoscopic evaluation or surgical intervention (consider transfer to tertiary facility if this required) Complications:: No immediate Estimated blood obtained (mL): 1 Comment:: The linear ulcerative lesion at the gastroesophageal junction projected from the proximal cardia margin to the distal esophageal margin. Location more consistent with Raina-Geiger tear; however, atypical proximal Timoteo lesion (as this was partially inclusive of hiatal hernia margin) remains a possibility. True classic distal esophageal ulcer somewhat less likely but also remains a possible etiology. Colonoscopy Component Colonoscopy Component Was a colonoscopy performed during today's procedure?: No
--- NOTE | 2023-10-11 12:42 | P.PNANES_ITS ---
[facility] Anesthesia Record Part I Anesthesia Record I Intake, IV Amount: 350 Hydration: Adequate Estimated blood loss (mL): 1 Urine output (mL): 0 Blood Pressure: 149/71 SaO2: 96 Pulse Rate: 110 Airway Patency: Patent Respiratory Rate: 18 Temperature: 97.7 F Patient is:: Drowsy and Stable Stable to PACU at:: 12:16
[2023-10-11 14:11] LABS: Basophils % 0.2 % (0.1-2.0); Chloride 105 mmol/L (98-107); Eosinophils # 0.1 K/mm3 (0.0-0.4); Eosinophils % 0.7 % (0.1-12.0); Hematocrit 28.1 % (37.0-47.0); Lymphocytes # 0.7 K/mm3 (0.7-4.5); Lymphocytes % 8.3 % (10-50); Mean Corpuscular HGB Conc 31.1 g/dL (31.8-35.4); Mean Corpuscular Hemoglobin 24.3 pg (27.0-31.2); Mean Corpuscular Volume 78.1 fl (81-99); Mean Platelet Volume 10.8 fl (7.4-10.4); Monocytes # 0.4 K/mm3 (0.1-1.0); Monocytes % 4.6 % (1.7-9.3); Neutrophils # 6.9 K/mm3 (1.8-7.8); Neutrophils % 86.1 % (37.0-80.0); Platelet Count 97 K/mm3 (142-424); Red Cell Distribution Width 24.4 % (11.5-17.5); Sodium 135 mmol/L (136-145)
[2023-10-11 14:14] LABS: Blood Urea Nitrogen 7 mg/dl (7-17); Calcium 7.9 mg/dl (8.4-10.2); Carbon Dioxide 25 mmol/L (22.0-30.0); Creatinine Clearance Estimated 63 mL/min (50-200); Estimated Glomerular Filt Rate 125 ml/min (>60); GFR (African American) 151 ML/MIN (>60); Glucose 109 mg/dl (74-100); Magnesium 2.1 mg/dl (1.6-2.3)
[2023-10-11 14:26] LABS: MANUAL DIFFERENTIAL MANUAL DIFFERENTIAL (MANUAL DIFF)
[2023-10-11 14:32] LABS: Hemoglobin 8.8 g/dL (12.2-16.2)
[2023-10-11 14:59] LABS: Eosinophils % 2 % (0-3); Lymphocytes % 9 % (10-50); Monocytes % 1 % (2-9); Neutrophils % 88 % (42-76); Total Cells Counted 100
[2023-10-11 15:00] LABS: Anisocytosis 1+; Hypochromasia 2+; Polychromasia 1+
[2023-10-11 15:01] LABS: Platelet Estimate Marked Decrease
--- NOTE | 2023-10-11 16:14 | PC.NURSE ---
PT IS RESTING IN BED. PT HAS BEEN SLEEPING MOST OF THE SHIFT. TOLERATED BLOOD TRANSFUSIONS WELL. PT STATES SHE IS FEELING BETTER. AMBULATES TO THE BATHROOM WITH 1 ASSIST. LUNG SOUNDS CLEAR. ABDOMEN SOFT/NON TENDER WITH ACTIVE BOWEL SOUNDS. VSS. WILL CONTINUE TO MONITOR.
[2023-10-11] MEDS: BUDESONIDE 0.5MG/2ML NEB 0.5 MG IH (18:20)
[2023-10-11] MEDS: OXYCODONE 10MG W/APAP 325MG TABLET 1 EACH PO (21:06)
[2023-10-11] MEDS: SODIUM CHLORIDE 0.9% 10ML VIAL 8 ML IV (21:06)
[2023-10-12] VITALS: BP 131/67; PULSE 89; RESP 16; TEMP 36.8; O2SAT 99
[2023-10-12 04:00] VITALS: BP 113/60; PULSE 73; RESP 17; TEMP 36.6; O2SAT 97; BMI 27.6
[2023-10-12 05:50] VITALS: PULSE 90; O2SAT 96
[2023-10-12] MEDS: BUDESONIDE 0.5MG/2ML NEB 0.5 MG IH (05:50)
[2023-10-12] MEDS: IPRATROPIUM/ALBUTEROL 3 ML NEB IH (05:50)
[2023-10-12 07:18] VITALS: BP 129/69; PULSE 89; RESP 14; TEMP 36.8; O2SAT 97
[2023-10-12 08:01] LABS: Alanine Aminotransferase 10 U/L (12-78); Albumin Level 3.3 g/dl (3.5-5.0); Albumin/Globulin Ratio 1.3 (1.1-1.8); Alkaline Phosphatase 81 U/L (38-126); Anion Gap 4.9 mEq/L (5-15); Aspartate Amino Transferase 20 U/L (14-36); Bilirubin,Total 2.4 mg/dl (0.2-1.3); Blood Urea Nitrogen 6 mg/dl (7-17); Carbon Dioxide 29 mmol/L (22.0-30.0); Chloride 105 mmol/L (98-107); Creatinine Clearance Estimated 62 mL/min (50-200); Estimated Glomerular Filt Rate 101 ml/min (>60); GFR (African American) 122 ML/MIN (>60); Globulin 2.5 g/dL (1.3-3.2); Glucose 101 mg/dl (74-100); Magnesium 2.1 mg/dl (1.6-2.3); Potassium 3.9 mmoL/L (3.5-5.1); Sodium 135 mmol/L (136-145); Total Protein,Serum 5.8 g/dl (6.3-8.2)
[2023-10-12 08:03] LABS: Basophils % 0.5 % (0.1-2.0); Eosinophils # 0.1 K/mm3 (0.0-0.4); Eosinophils % 2.4 % (0.1-12.0); Hematocrit 27.4 % (37.0-47.0); Hemoglobin 8.4 g/dL (12.2-16.2); Lymphocytes # 1.3 K/mm3 (0.7-4.5); Lymphocytes % 25.7 % (10-50); Mean Corpuscular HGB Conc 30.8 g/dL (31.8-35.4); Mean Corpuscular Volume 77.9 fl (81-99); Mean Platelet Volume 8.4 fl (7.4-10.4); Monocytes # 0.3 K/mm3 (0.1-1.0); Monocytes % 5.7 % (1.7-9.3); Neutrophils # 3.3 K/mm3 (1.8-7.8); Neutrophils % 65.8 % (37.0-80.0); Platelet Count 86 K/mm3 (142-424); Red Blood Count 3.52 M/mm3 (4.20-5.40); Red Cell Distribution Width 24.1 % (11.5-17.5); White Blood Count 4.9 K/mm3 (4.8-10.8)
--- NOTE | 2023-10-12 08:26 | EXP.DC.SUM ---
General Admission date:: 10/11/23 Discharge date: 10/12/23 HPI HPI HPI: This is a 62-year-old female seen in consultation from the primary service for evaluation regarding anemia from suspected subacute/chronic gastrointestinal loss. She reports that she had a normal colonoscopy approximately 3 years ago at an outside facility. Forwarded from admission H&P: This is a very pleasant 62-year-old female with a past medical history of HTN, COPD,, GERD who presents emergency department today with complaints of feeling generally ill for the last couple months. She reports shortness of breath and generally weak when walking because the room. She states that she is feels rundown. She denies any cough or chest pain. She does endorse new lumps in her armpits recently and a lump under the left jaw. She reports recent colonoscopy that was normal with an abnormal mammogram several months ago but she has not had follow-up for yet. She does endorse a familial history of leukemia, states that her brother just from this. Emergency Department workup significant for anemia with a hemoglobin of 4. Iron labs suggestive of iron deficiency anemia. She has been transfused 1 unit PRBCs and will be admitted to the hospital service for further evaluation. Hospital Course Hospital Course Hospital Course: This is a 62-year-old female with past medical history of COPD, GERD, hypertension who presents emergency department today with complaints of generalized weakness. She was found to have a hemoglobin of 4 with what appears to be iron deficiency anemia. Surgery consulted, scope performed showing concern for possible Raina-Geiger tear that is healing or irritation of the distal esophagus. No active bleeding. Responded well to transfusion. Meeting discharge criteria. Problems addressed as follows: Microcytic anemia, GI loss Iron deficiency Hemoglobin 4 on admission. Iron saturation of 5 with a iron level of 21, iron deficient. Status post 3units of RBCs with good response to Hgb of 8.8, stable at 8.4 on morning labs. Given stability, stable for discharge home. Was initiated on famotidine due to allergy to PPIs. Surgery was consulted, scoped patient. See scope report for full details. Irritation in distal esophagus, likely source for gradual blood loss and iron deficiency. Needs to follow-up with surgery as an outpatient for further evaluation. Patient was administered 1 dose of IV Venofer on morning of discharge. Order sent to outpatient infusion to complete 4 more doses for full course of Venofer. Lymphadenopathy Submandibular lymphadenopathy as well as axilla Known to patient and being worked up outpatient. Patient's brother did have leukemia so this is concerning for patient. She is scheduled for outpatient MRI of head and neck. Chronic obstructive pulmonary disease Currently stable, continue patient's home bronchodilators Chronic pain Continue home patient medications Exam Data for Last 24 hours Vital signs and Labs for Last 24 Hours: Temp Pulse Resp BP Pulse Ox O2 Del Method O2 Flow Rate 98.2 F 89 14 129/69 97 Room Air 5 10/12/23 07:18 10/12/23 07:18 10/12/23 07:18 10/12/23 07:18 10/12/23 07:18 10/12/23 07:18 10/11/23 11:42 Laboratory Results - last 24 hr 10/11/23 00:37: Hct 15.3 L*, Blood Type A Positive, Antibody Screen Negative, Crossmatch (AHG) See Detail 10/11/23 13:52: WBC 8.0, RBC 3.60 L D, Hgb 8.8 L D 10/11/23 13:52: Hgb Cancelled, Hct 28.1 L 10/11/23 13:52: Hct Cancelled, MCV 78.1 L, MCH 24.3 L D, MCHC 31.1 L, RDW 24.4 H, Plt Count 97 L D, MPV 10.8 H, Neut % (Auto) 86.1 H, Lymph % (Auto) 8.3 L, [place] % (Auto) 4.6, Eos % (Auto) 0.7, Baso % (Auto) 0.2, Neut # (Auto) 6.9, Lymph # (Auto) 0.7, [place] # (Auto) 0.4, Eos # (Auto) 0.1, Baso # (Auto) 0.0, Total Counted 100, Neutrophils % (Manual) 88 H, Lymphocytes % (Manual) 9 L, Monocytes % (Manual) 1 L, Eosinophils % (Manual) 2, Platelet Estimate Marked decrease, RBC Morphology Not Reportable, Polychromasia 1+, Hypochromasia 2+, Anisocytosis 1+, Sodium 135 L, Potassium 4.0, Chloride 105, Carbon Dioxide 25, Anion Gap 9.0, BUN 7 D, Creatinine 0.50 L, Estimated Creat Clear 63, Estimated GFR 125, Est GFR ( Amer) 151 D, Glucose 109 H, Calcium 7.9 L, Magnesium 2.1 10/12/23 07:15: WBC 4.9 D, RBC 3.52 L, Hgb 8.4 L, Hct 27.4 L, MCV 77.9 L, MCH 24.0 L, MCHC 30.8 L, RDW 24.1 H, Plt Count 86 L, MPV 8.4, Neut % (Auto) 65.8, Lymph % (Auto) 25.7, [place] % (Auto) 5.7, Eos % (Auto) 2.4, Baso % (Auto) 0.5, Neut # (Auto) 3.3, Lymph # (Auto) 1.3, [place] # (Auto) 0.3, Eos # (Auto) 0.1, Baso # (Auto) 0.0, Sodium 135 L, Potassium 3.9, Chloride 105, Carbon Dioxide 29, Anion Gap 4.9 L, BUN 6 L, Creatinine 0.60, Estimated Creat Clear 62, Estimated GFR 101, Est GFR ( Amer) 122, Glucose 101 H, Calcium 8.0 L, Magnesium 2.1, Total Bilirubin 2.4 H, AST 20, ALT 10 L, Alkaline Phosphatase 81, Total Protein 5.8 L, Albumin 3.3 L D, Globulin 2.5, Albumin/Globulin Ratio 1.3 I & O for Last 24 hours: Intake & Output 10/09/23 10/10/23 10/11/23 10/12/23 23:59 23:59 23:59 23:59 Intake Total 1120 / 1120 Output Total 0 / 0 0 / 0 Balance 1120 / 1120 0 / 0 Weight 68.765 kg 68 kg Constitutional Constitutional: no acute distress, average body habitus and cooperative *Routine HEENT Exam Head: Present normocephalic Eye: Present EOMI and PERRL ENT: Present mucous membranes moist *Routine Neck Exam Neck: Present supple; Absent lymphadenopathy *Routine Respiratory Exam Respiratory: Present CTA bilaterally; Absent rhonchi, wheezes or crackles *Routine Cardiovascular Exam Cardiovascular: Present RRR *Routine Abdominal Exam Abdominal: Present soft and normoactive bowel sounds; Absent tenderness *Routine Extremities Exam Extremities: Absent cyanosis, clubbing or edema *Routine Skin Exam Skin: Present warm; Absent pallor or rash *Routine Neurological Exam Neurological: Present alert, oriented X3 and moving all extremities; Absent altered mental status Results Data Completed and Pending Labs on day of discharge: Labs from last 24 hours 10/12/23 10/11/23 10/11/23 07:15 13:52 13:52 WBC 4.9 D RBC 3.52 L Hgb 8.4 L Cancelled Hct 27.4 L Cancelled 28.1 L MCV 77.9 L 78.1 L MCH 24.0 L 24.3 L D MCHC 30.8 L 31.1 L RDW 24.1 H 24.4 H Plt Count 86 L 97 L D MPV 8.4 10.8 H Neut % (Auto) 65.8 86.1 H Lymph % (Auto) 25.7 8.3 L [place] % (Auto) 5.7 4.6 Eos % (Auto) 2.4 0.7 Baso % (Auto) 0.5 0.2 Neut # (Auto) 3.3 6.9 Lymph # (Auto) 1.3 0.7 [place] # (Auto) 0.3 0.4 Eos # (Auto) 0.1 0.1 Baso # (Auto) 0.0 0.0 Total Counted 100 Neutrophils % (Manual) 88 H Lymphocytes % (Manual) 9 L Monocytes % (Manual) 1 L Eosinophils % (Manual) 2 Platelet Estimate Marked decrease RBC Morphology Not Reportable Polychromasia 1+ Hypochromasia 2+ Anisocytosis 1+ Sodium 135 L 135 L Potassium 3.9 4.0 Chloride 105 105 Carbon Dioxide 29 25 Anion Gap 4.9 L 9.0 BUN 6 L 7 D Creatinine 0.60 0.50 L Estimated Creat Clear 62 63 Estimated GFR 101 125 Est GFR ( Amer) 122 151 D Glucose 101 H 109 H Calcium 8.0 L 7.9 L Magnesium 2.1 2.1 Total Bilirubin 2.4 H AST 20 ALT 10 L Alkaline Phosphatase 81 Total Protein 5.8 L Albumin 3.3 L D Globulin 2.5 Albumin/Globulin Ratio 1.3 Blood Type Antibody Screen Crossmatch ([facility]) 10/11/23 10/11/23 13:52 00:37 WBC 8.0 RBC 3.60 L D Hgb 8.8 L D Hct 15.3 L* MCV MCH MCHC RDW Plt Count MPV Neut % (Auto) Lymph % (Auto) [place] % (Auto) Eos % (Auto) Baso % (Auto) Neut # (Auto) Lymph # (Auto) [place] # (Auto) Eos # (Auto) Baso # (Auto) Total Counted Neutrophils % (Manual) Lymphocytes % (Manual) Monocytes % (Manual) Eosinophils % (Manual) Platelet Estimate RBC Morphology Polychromasia Hypochromasia Anisocytosis Sodium Potassium Chloride Carbon Dioxide Anion Gap BUN Creatinine Estimated Creat Clear Estimated GFR Est GFR ( Amer) Glucose Calcium Magnesium Total Bilirubin AST ALT Alkaline Phosphatase Total Protein Albumin Globulin Albumin/Globulin Ratio Blood Type A Positive Antibody Screen Negative Crossmatch (AHG) See Detail DS: Diagnosis Discharge Diagnosis (1) Iron deficiency anemia: Status: Acute Code(s): D50.9 - Iron deficiency anemia, unspecified Qualifiers: Iron deficiency anemia type: unspecified iron deficiency Qualified Code(s): D50.9 - Iron deficiency anemia, unspecified (2) Lymphadenopathy: Status: Acute Code(s): R59.1 - Generalized enlarged lymph nodes (3) Tachycardia: Status: Acute Code(s): R00.0 - Tachycardia, unspecified (4) COPD (chronic obstructive pulmonary disease): Status: Acute Code(s): J44.9 - Chronic obstructive pulmonary disease, unspecified Qualifiers: COPD type: unspecified COPD Qualified Code(s): J44.9 - Chronic obstructive pulmonary disease, unspecified Problem details: I made a mistake at the last visit and dictated that she was still smoking. Barbra has never smoked. She has history of secondhand smoke as well as some viral infections that have caused her to have COPD. Meds Home Medications and Allergies Home Medications Medication Instructions Recorded Confirmed Type citalopram 40 mg tablet 40 mg PO DAILYP PRN Anxiety 06/14/23 10/11/23 History lisinopril 10 mg tablet 10 mg PO DAILY 06/14/23 10/11/23 History ropinirole 0.25 mg tablet 0.25 mg PO HS #30 tabs 07/06/23 10/11/23 Rx albuterol sulfate 90 mcg/actuation 2 puff inhalation BID PRN 09/14/23 10/11/23 Rx aerosol inhaler (Ventolin HFA) Breathing Problems #8.5 grams oxycodone-acetaminophen 10 mg-325 1 tab PO TID Pain #90 tabs 09/14/23 10/11/23 Rx mg tablet (Percocet) budesonide-formoterol HFA 80 1 puff inhalation DAILY 10/11/23 10/11/23 History mcg-4.5 mcg/actuation aerosol inhaler (Symbicort) diazepam 5 mg tablet (Valium) 5 mg PO TID 10/11/23 10/11/23 History ipratropium 0.5 mg-albuterol 3 mg 3 ml inhalation BID 10/11/23 10/11/23 History (2.5 mg base)/3 mL nebulization soln famotidine 40 mg tablet 40 mg PO BID 30 days #60 tabs 10/12/23 Rx New Prescriptions to Start Prescriptions: famotidine Roger Cobos Allergies Allergy/AdvReac Type Severity Reaction Status Date / Time hydrocodone Allergy Intermediate Hives Verified 10/10/23 10:38 omeprazole [From Prilosec] Allergy Intermediate Rash Verified 10/10/23 10:38 duloxetine [From CYMBALTA] Allergy Unknown I-HIVES Verified 10/10/23 10:38 penicillin G [PENICILLIN G] Allergy Unknown I-HIVES Verified 10/10/23 10:38 Sulfa (Sulfonamide Allergy Unknown I-HIVES Verified 10/10/23 10:38 Antibiotics) [SULFA (SULFONAMIDE ANTIBIOTICS)] Discharge Plan Disposition Patient Disposition: Home, Self-Care Condition: Good Discharge Order Discharge Orders: Discharge Order (Routine); Ordered 10/12/23 Ordered By: Roger Cobos Follow up Plan Follow up with: Mykel Johnson MD [Staff Physician] - 10/18/23 2:45 pm Prescriptions/Medication Reconciliation: Continued albuterol sulfate [Ventolin HFA] 90 mcg/actuation HFA aerosol inhaler 2 puff inhalation BID PRN (Reason: Breathing Problems) Qty: 8.5 6RF oxycodone-acetaminophen [Percocet] 10-325 mg tablet 1 tab PO TID Qty: 90 0RF citalopram 40 mg tablet 40 mg PO DAILYP PRN (Reason: Anxiety) lisinopril 10 mg tablet 10 mg PO DAILY ropinirole 0.25 mg tablet 0.25 mg PO HS Qty: 30 0RF ipratropium-albuterol 0.5 mg-3 mg(2.5 mg base)/3 mL solution for nebulization 3 ml inhalation BID diazepam [Valium] 5 mg tablet 5 mg PO TID budesonide-formoterol [Symbicort] 80-4.5 mcg/actuation HFA aerosol inhaler 1 puff inhalation DAILY Changed famotidine 40 mg tablet 40 mg PO BID 30 Days Qty: 60 0RF Problem Reconciliation Problems Reviewed?: Yes Patient Discharge Instructions ACTIVITY: Continue current activity DIET: continue same diet Providers Primary Care Provider: Davide Yin Admit Provider: Roger Cobos Attending Provider: Roger Cobos
--- NOTE | 2023-10-12 08:52 | EXP.SURG.PN ---
Subjective Patient reports: feels better Exam Data for Last 24 hours Vital signs and Labs for Last 24 Hours: Temp Pulse Resp BP Pulse Ox O2 Del Method O2 Flow Rate 98.2 F 89 14 129/69 97 Room Air 5 10/12/23 07:18 10/12/23 07:18 10/12/23 07:18 10/12/23 07:18 10/12/23 07:18 10/12/23 07:18 10/11/23 11:42 Laboratory Results - last 24 hr 10/11/23 00:37: Blood Type A Positive, Antibody Screen Negative, Crossmatch (AHG) See Detail 10/11/23 13:52: WBC 8.0, RBC 3.60 L D, Hgb 8.8 L D 10/11/23 13:52: Hgb Cancelled, Hct 28.1 L 10/11/23 13:52: Hct Cancelled, MCV 78.1 L, MCH 24.3 L D, MCHC 31.1 L, RDW 24.4 H, Plt Count 97 L D, MPV 10.8 H, Neut % (Auto) 86.1 H, Lymph % (Auto) 8.3 L, [place] % (Auto) 4.6, Eos % (Auto) 0.7, Baso % (Auto) 0.2, Neut # (Auto) 6.9, Lymph # (Auto) 0.7, [place] # (Auto) 0.4, Eos # (Auto) 0.1, Baso # (Auto) 0.0, Total Counted 100, Neutrophils % (Manual) 88 H, Lymphocytes % (Manual) 9 L, Monocytes % (Manual) 1 L, Eosinophils % (Manual) 2, Platelet Estimate Marked decrease, RBC Morphology Not Reportable, Polychromasia 1+, Hypochromasia 2+, Anisocytosis 1+, Sodium 135 L, Potassium 4.0, Chloride 105, Carbon Dioxide 25, Anion Gap 9.0, BUN 7 D, Creatinine 0.50 L, Estimated Creat Clear 63, Estimated GFR 125, Est GFR ( Amer) 151 D, Glucose 109 H, Calcium 7.9 L, Magnesium 2.1 10/12/23 07:15: WBC 4.9 D, RBC 3.52 L, Hgb 8.4 L, Hct 27.4 L, MCV 77.9 L, MCH 24.0 L, MCHC 30.8 L, RDW 24.1 H, Plt Count 86 L, MPV 8.4, Neut % (Auto) 65.8, Lymph % (Auto) 25.7, [place] % (Auto) 5.7, Eos % (Auto) 2.4, Baso % (Auto) 0.5, Neut # (Auto) 3.3, Lymph # (Auto) 1.3, [place] # (Auto) 0.3, Eos # (Auto) 0.1, Baso # (Auto) 0.0, Sodium 135 L, Potassium 3.9, Chloride 105, Carbon Dioxide 29, Anion Gap 4.9 L, BUN 6 L, Creatinine 0.60, Estimated Creat Clear 62, Estimated GFR 101, Est GFR ( Amer) 122, Glucose 101 H, Calcium 8.0 L, Magnesium 2.1, Total Bilirubin 2.4 H, AST 20, ALT 10 L, Alkaline Phosphatase 81, Total Protein 5.8 L, Albumin 3.3 L D, Globulin 2.5, Albumin/Globulin Ratio 1.3 I & O for Last 24 hours: Intake & Output 10/09/23 10/10/23 10/11/23 10/12/23 11:59 11:59 11:59 11:59 Intake Total 500 / 500 620 / 620 Output Total 0 / 0 0 / 0 Balance 500 / 500 620 / 620 Weight 151 lb 9.6 oz 149 lb 14.629 oz Constitutional Constitutional: no acute distress *Routine Respiratory Exam Respiratory: Absent respiratory distress *Routine Cardiovascular Exam Cardiovascular: Absent tachycardia Progress Note: A&P Assessment and plan (1) Raina-Geiger tear: Status: Acute Assessment and plan: Overall, doing well status post esophagogastroduodenoscopy with epinephrine injection. Soft diet Likely repeat esophagogastroduodenoscopy in 6-8 weeks Continue acid suppression
[2023-10-12] MEDS: IRON SUCROSE COMPLEX 200 MG in 0.9 % SODIUM CHLORIDE 100 ML 220 MG IV (09:46)
[2023-10-12] MEDS: FAMOTIDINE 20MG/2ML VIAL 20 MG IV (09:47)
[2023-10-12] MEDS: SODIUM CHLORIDE 0.9% 10ML VIAL 8 ML IV (09:47)
[2023-10-12] MEDS: LISINOPRIL 10MG TABLET 10 MG PO (09:47)
[2023-10-12] MEDS: OXYCODONE 10MG W/APAP 325MG TABLET 1 EACH PO ×2 (09:57→12:58)
[2023-10-12 11:15] LABS: Haptoglobin 125 mg/dL (37-355)
[2023-10-13 00:48] LABS: Peripheral Smear Review Scanned Result
--- NOTE | 2023-10-13 15:02 | CARE MANAGER ---
Called and spoke with patient regarding recent discharge. CM is unable to get a PA for Venofer at this time. It was denied due to no previous treatment with oral iron. Patient plans to call her PCP to work on getting started on something for her anemia. No concerns voiced at time of call. She was aware of scheduled f/u appt.
== END 2023-10-12 16:30 | disposition home or self-care (01) ==
LOC: ER 00:35 → ICU 02:00
PROVIDERS: Nurse Practitioner Acute Care; Surgery; Admitting Provider Internal Medicine Adolescent Medicine; Emergency Provider Emergency Medicine; PCP Internal Medicine; Visit Provider Internal Medicine Adolescent Medicine
PROC: 0DJ08ZZ Inspection of Upper Intestinal Tract, Via Natural or Artificial Opening Endoscopic (ICD-10-PCS; CPT 43235; principal; 2023-10-11 11:30)
DX: D50.9 Iron deficiency anemia, unspecified (principal); R59.1 Generalized enlarged lymph nodes; J44.9 Chronic obstructive pulmonary disease, unspecified; K22.6 Gastro-esophageal laceration-hemorrhage syndrome; I10 Essential (primary) hypertension; Z79.899 Other long term (current) drug therapy; D62 Acute posthemorrhagic anemia; K44.9 Diaphragmatic hernia without obstruction or gangrene
CPT/HCPCS: 43239; 43236; 36415; 36430; 71045; 80048; 80053; 80061; 80307; 82043; 82570; 82728; 83010; 83540; 83550; 83735; 84436; 84443; 85007; 85025; 85044; 85610; 85730; 86850; 93005; 94640; 99285; G0378; J1756; P9016

== ENCOUNTER 2023-10-25 14:29 | Outpatient (CLI) | payer BC, SELFPAY ==
[2023-10-25 16:03] LABS: Basophils % 0.4 % (0.1-2.0); Eosinophils # 0.1 K/mm3 (0.0-0.4); Hematocrit 33.5 % (37.0-47.0); Hemoglobin 10.2 g/dL (12.2-16.2); Lymphocytes # 0.9 K/mm3 (0.7-4.5); Lymphocytes % 18.2 % (10-50); Mean Corpuscular HGB Conc 30.5 g/dL (31.8-35.4); Mean Corpuscular Hemoglobin 25.4 pg (27.0-31.2); Mean Corpuscular Volume 83.1 fl (81-99); Mean Platelet Volume 9.2 fl (7.4-10.4); Monocytes # 0.2 K/mm3 (0.1-1.0); Monocytes % 5.1 % (1.7-9.3); Neutrophils # 3.5 K/mm3 (1.8-7.8); Neutrophils % 75.2 % (37.0-80.0); Platelet Count 329 K/mm3 (142-424); Red Blood Count 4.03 M/mm3 (4.20-5.40); White Blood Count 4.7 K/mm3 (4.8-10.8)
== END 2023-10-25 23:59 ==
LOC: LAB 14:30
PROVIDERS: PCP Internal Medicine; Visit Provider Surgery
DX: D50.9 Iron deficiency anemia, unspecified (principal)
CPT/HCPCS: 36415; 85025

== ENCOUNTER 2023-10-31 21:23 | Outpatient (CLI) | payer BC, SELFPAY ==
[2023-10-31 18:29] LABS: Basophils % 0.4 % (0.1-2.0); Eosinophils # 0.1 K/mm3 (0.0-0.4); Eosinophils % 1.5 % (0.1-12.0); Hematocrit 33.2 % (37.0-47.0); Hemoglobin 10.2 g/dL (12.2-16.2); Lymphocytes # 1.3 K/mm3 (0.7-4.5); Lymphocytes % 27.2 % (10-50); Mean Corpuscular HGB Conc 30.8 g/dL (31.8-35.4); Mean Corpuscular Hemoglobin 25.8 pg (27.0-31.2); Mean Corpuscular Volume 83.8 fl (81-99); Mean Platelet Volume 10.6 fl (7.4-10.4); Monocytes # 0.3 K/mm3 (0.1-1.0); Neutrophils # 3.1 K/mm3 (1.8-7.8); Neutrophils % 64.9 % (37.0-80.0); Platelet Count 304 K/mm3 (142-424); Red Blood Count 3.96 M/mm3 (4.20-5.40); White Blood Count 4.7 K/mm3 (4.8-10.8)
[2023-10-31 18:31] LABS: Red Cell Distribution Width 25.5 % (11.5-17.5)
== END 2023-10-31 23:59 ==
LOC: LAB.DROPOF 21:23
PROVIDERS: PCP Internal Medicine; Visit Provider Internal Medicine
DX: R53.83 Other fatigue (principal)
CPT/HCPCS: 85025

== ENCOUNTER 2024-01-11 13:43 | Outpatient (CLI) | payer BC, SELFPAY ==
[2024-01-11 14:22] LABS: Basophils # 0.1 K/mm3 (0-0.2); Basophils % 1.5 % (0.1-2.0); Eosinophils # 0.2 K/mm3 (0.0-0.4); Eosinophils % 3.2 % (0.1-12.0); Hemoglobin 14.2 g/dL (12.2-16.2); Lymphocytes # 2.2 K/mm3 (0.7-4.5); Lymphocytes % 36.4 % (10-50); Mean Corpuscular HGB Conc 38.2 g/dL (31.8-35.4); Mean Corpuscular Hemoglobin 34.8 pg (27.0-31.2); Mean Corpuscular Volume 90.9 fl (81-99); Mean Platelet Volume 9.7 fl (7.4-10.4); Monocytes # 0.4 K/mm3 (0.1-1.0); Monocytes % 6.5 % (1.7-9.3); Neutrophils # 3.1 K/mm3 (1.8-7.8); Neutrophils % 52.5 % (37.0-80.0); Platelet Count 170 K/mm3 (142-424); Red Blood Count 4.07 M/mm3 (4.20-5.40); Red Cell Distribution Width 17.1 % (11.5-17.5); White Blood Count 5.9 K/mm3 (4.8-10.8)
[2024-01-11 15:38] LABS: Iron 92 ug/dL (37-170)
[2024-01-11 15:52] LABS: Total Iron Binding Capacity 302 ug/dL (265-497)
[2024-01-11 16:17] LABS: Ferritin 20.9 ng/ml (11.1-264)
== END 2024-01-11 23:59 | disposition home or self-care (01) ==
LOC: LAB 13:44
PROVIDERS: PCP Internal Medicine; Visit Provider Internal Medicine Medical Oncology
DX: D50.9 Iron deficiency anemia, unspecified (principal)
CPT/HCPCS: 36415; 82728; 83540; 83550; 85025

== ENCOUNTER 2024-01-31 16:16 | Outpatient (CLI) | payer BC, SELFPAY ==
[2024-01-31 16:41] LABS: Basophils % 0.3 % (0.1-2.0); Eosinophils # 0.2 K/mm3 (0.0-0.4); Eosinophils % 2.8 % (0.1-12.0); Hematocrit 44.5 % (37.0-47.0); Hemoglobin 14.1 g/dL (12.2-16.2); Lymphocytes # 1.9 K/mm3 (0.7-4.5); Lymphocytes % 30.4 % (10-50); Mean Corpuscular HGB Conc 31.7 g/dL (31.8-35.4); Mean Corpuscular Hemoglobin 28.7 pg (27.0-31.2); Mean Corpuscular Volume 90.4 fl (81-99); Mean Platelet Volume 9.2 fl (7.4-10.4); Monocytes # 0.4 K/mm3 (0.1-1.0); Monocytes % 6.3 % (1.7-9.3); Neutrophils # 3.7 K/mm3 (1.8-7.8); Neutrophils % 60.3 % (37.0-80.0); Platelet Count 180 K/mm3 (142-424); Red Blood Count 4.92 M/mm3 (4.20-5.40); Red Cell Distribution Width 16.3 % (11.5-17.5); White Blood Count 6.2 K/mm3 (4.8-10.8)
[2024-01-31 17:12] LABS: D-Dimer 0.45 ug/mL (0.0-0.5)
[2024-01-31 17:19] LABS: Alanine Aminotransferase 20 U/L (12-78); Albumin Level 4.3 g/dl (3.5-5.0); Alkaline Phosphatase 80 U/L (38-126); Anion Gap 12.5 mEq/L (5-15); Aspartate Amino Transferase 29 U/L (14-36); Bilirubin,Direct 0.3 mg/dl (0.0-0.4); Bilirubin,Indirect 0.3 mg/dL (0.0-0.9); Bilirubin,Total 0.6 mg/dl (0.2-1.3); Bilirubin,Unconjugated 0.4 mg/dL (0.0-1.1); Blood Urea Nitrogen 13 mg/dl (7-17); Calcium 9.7 mg/dl (8.4-10.2); Carbon Dioxide 26 mmol/L (22.0-30.0); Chloride 104 mmol/L (98-107); Chol/HDL Ratio 2.7 (1-3.5); Cholesterol 137 mg/dl (140-200); Estimated Glomerular Filt Rate 124 ml/min (>60); GFR (African American) 150 ML/MIN (>60); Glucose 99 mg/dl (74-100); HDL Cholesterol 51 mg/dl (40-60); Magnesium 2.1 mg/dl (1.6-2.3); Potassium 4.5 mmoL/L (3.5-5.1); Sodium 138 mmol/L (136-145); Total Protein,Serum 6.7 g/dl (6.3-8.2); Triglycerides 70 mg/dl (30-150); VLDL Cholesterol 14 mg/dL (0-40)
[2024-01-31 17:30] LABS: Direct LDL Cholesterol 80.09 mg/dL (100-129)
[2024-01-31 17:45] LABS: Troponin I < 0.01 ng/ml (0.00-0.034)
[2024-01-31 17:52] LABS: Thyroid Stimulating Hormone < 0.02 uIU/mL (0.465-4.68)
[2024-01-31 21:29] LABS: Free T4 (Free Thyroxine) 1.45 ng/dl (0.78-2.19)
== END 2024-01-31 23:59 | disposition home or self-care (01) ==
PROVIDERS: PCP Internal Medicine; Visit Provider Internal Medicine
DX: R06.00 Dyspnea, unspecified (principal); R00.0 Tachycardia, unspecified; R94.31 Abnormal electrocardiogram [ECG] [EKG]; R53.83 Other fatigue; K22.6 Gastro-esophageal laceration-hemorrhage syndrome; I10 Essential (primary) hypertension
CPT/HCPCS: 36415; 80048; 80061; 80076; 83735; 84439; 84443; 84484; 85025; 85378; 93270

== ENCOUNTER 2024-04-24 09:56 | Day surgery (SDC) | payer BC, SELFPAY ==
[2024-03-04 13:24] VITALS: BMI 24.3
[2024-04-24] VITALS (10 sets, daily range): BP systolic 120–143; BP diastolic 65–84; PULSE 73–98; RESP 16–18; TEMP 36.5–37.1; O2SAT 91–99; BMI 23.9
[2024-04-24] MEDS: LACTATED RINGERS 1000ML 1,000 ML 100 ML IV (11:02)
[2024-04-24] MEDS: LIDOCAINE 1% W/EPI 1:100,000 20ML VIAL 20 ML (11:35)
[2024-04-24] MEDS: CLINDAMYCIN PHOSPHATE/D5W 900 MG/50 ML PIGGYBACK 100 MG IV (11:35)
--- NOTE | 2024-04-24 11:53 | P.OP_ITS ---
Date of procedure: 04/24/24 Pre-op Diagnosis:: Left ring finger trigger finger Post-op Diagnosis:: Same Procedure performed:: Left hand A1 gatito release left ring finger Surgeon:: Michael Velásquez DO Computer Equipment Repairer(s):: Khris BUCKNER SUPPLY CHAIN CONSULTANT:: Brandie King Anesthesia: LMA Estimated blood loss (mL): 0 Operative findings:: Cyst at the A1 gatito along with synovitis of the flexor tendons Operative note:: Patient was identified preoperatively. Left hand ring finger marked with yes my initials. Taken the operating suite placed upon the operating bed. General anesthesia administered airway secured. Left upper extremities and prepped and draped normal sterile fashion. Once prepped and draped final operative timeout performed to identify proper patient procedure and extremity. Everyone involved the case agreed. There were no counter indications to beginning. Did receive preoperative antibiotics. Marking pen was used to make planned incision over the A1 gatito left ring finger. Esmarch was used to exsanguinate the extremity pneumatic tourniquet inflated to 250 mmHg. Skin knife was used to incise through skin retractors were placed dissection was taken bluntly down to identify the A1 gatito. [place] blade was used to incise the A1 gatito and then scissors under direct visualization was used to release the A1 gatito in its entirety. Upon entering the A1 gatito there was a cyst which had ruptured and is extensive synovitis of the flexor tendons which were brought outside the wound and inspected the fingers taken through range of motion no further triggering and was noted. Irrigation of the wound performed skin closed with nylon stitch sterile hand dressing placed patient waken anesthesia taken recovery in stable condition. Condition: stable Disposition: PACU Complications:: None apparent
--- NOTE | 2024-04-24 11:59 | EXP.ANES.CKL ---
[facility] Disclaimer: The information contained in this section may have been updated after the patient was seen, as this information can be updated by other users. Medical History Abnormal electrocardiogram [ECG] [EKG] Tachycardia History of foot drop Follow-up for now. Hx of fracture of patella L knee Hx of fracture of wrist History of depression History of anxiety History of gastroesophageal reflux (GERD) Surgical History Hx of knee surgery History of meniscectomy of left knee Hx of meniscectomy of right knee History of bladder surgery several History of back surgery History of hysterectomy History of colonoscopy History of cholecystectomy Family History Other Family history of diabetes mellitus type II Family history of hyperlipidemia Family history of hypertension Family history of stroke Social History Smoking Status: Never smoker alcohol intake: current alcohol intake frequency: holidays/special occasions only substance use type: denies use, former substance user and methamphetamine current occupational status: disabled Travel in the last 8 weeks: None adopted: No household members: family housing: house lives independently: Yes marital status: education level: high school special sejal needs: No agree to transfusion: No do you feel safe at home: Yes victim of physical abuse: No victim of emotional abuse: No victim of sexual abuse: No would you like helpful sources: No [facility] Anesthesia Checklist Patient Identification Patient Identification: Arm Band, Family and Verbal (Name & ) Structural Data Admitted From: Home Planned Operative Procedure/s: LT. Ringer fnfer A1 gatito release Consent for Planned Operative Procedure(s) Verified: Yes Verified Documents: Surgical Consent and History and Physical NPO Status Verified Time NPO: 01:00 Chart Verification Results Verified: CBC, BMP, ECG and Chest Xray Additional verifications Patient : No Anesthesia Reactions: No Hx Blood Transfusions: Yes Blood Transfusion Reaction: No Cardiovascular Assessment Heart Sounds: S1 & S2 Pulse Rhythm: Irregular Peripheral Edema: No Airway Assessment Mallampati Score:: Class II C-Spine Mobility Assessed: Yes (FROM) TMJ Mobility Assessed: Yes Dentition: Poor Dentition (Nothing loose per pt.) Neurological Assessment Level of Consciousness: Awake, Alert, Appropriate and Follows Commands Hx Seizures: No Numbness or tingling in extremities: No Anesthesia Plan Anesthesia Risk discussed: Yes Anesthesia Plan: Verified ASA Class: III Anesthesia Type: General
--- NOTE | 2024-04-24 12:06 | EXP.ANES.I ---
[facility] Anesthesia Record Part I Anesthesia Record I Intake, IV Amount: 300 Hydration: Adequate Estimated blood loss (mL): 5 Urine output (mL): 0 Blood Products used (#): none Blood Pressure: 132/75 SaO2: 96 Pulse Rate: 84 Airway Patency: Patent Respiratory Rate: 16 Temperature: 97.7 F Patient is:: Drowsy (Talking after removal of oral airway.), Oral/Nasal airway (9.0 oral airway removed upon arrival to PACU) and Stable Stable to PACU at:: 12:00
--- NOTE | 2024-04-24 17:33 | P.PNANES_ITS ---
[facility] Anesthesia Record Part II Anesthesia Record Part II Discharge Time: 12:25 Destination: Surgical Day Care (OP Surgery) PACU nurse assessment reviewed?: Yes Patient Condition:: Good Anesthesia Complications:: None Swallowing reflex intact?: Yes Airway Patency: Patent Cyanosis?: No Blood Pressure: 131/82 SaO2: 92 Respiratory Rate: 16 Pulse Rate: 95 Temperature: 97.7 F Mental Status: Alert & Oriented Pain level:: 0 Nausea and/or vomitting:: None Intake, IV Amount: 300 Hydration: Adequate
== END 2024-04-24 12:56 | disposition home or self-care (01) ==
PROVIDERS: PCP Internal Medicine; Visit Provider Orthopaedic Surgery
PROC: (CPT 26055; principal; 2024-04-24 11:00)
DX: M65.342 Trigger finger, left ring finger (principal)
CPT/HCPCS: 26055; 96374; J1100; J2250; J2405; J3010; J7120

== ENCOUNTER 2024-04-24 13:47 | Outpatient (RCR) | payer BC, SELFPAY | END 2024-04-24 15:00 | disposition home or self-care (01) | LOC: PT 13:47 | PROVIDERS: Visit Provider Orthopaedic Surgery | DX: M25.561 Pain in right knee (principal); S83.91XA Sprain of unspecified site of right knee, initial encounter | CPT/HCPCS: 97760 ==

== ENCOUNTER 2024-10-29 15:00 | Outpatient (CLI) | payer OTHER, SELFPAY ==
--- NOTE | 2024-10-29 15:03 | MR_ITS ---
FINAL REPORT CLINICAL HISTORY: POLYARTHRALGIA unable to make fist after trigger release surgery in 2016 best images possible COMPARISON: None FINDINGS: Multiplanar MR imaging was obtained of the left hand. The hand is held in partial flexion. There is flexion of the metacarpal phalangeal joints and extension of the PIP joints best seen on the sagittal images. On coronal images there is no evidence of marrow edema within the metacarpals or visualized phalanges. Axial images demonstrate the flexor and extensor tendons to be intact. There is no localized inflammatory reaction or fluid collection. IMPRESSION: No acute bony abnormality. Appearance consistent with claw hand . Please correlate with underlying history of nerve injury or stroke. Reviewed, Interpreted and Dictated by Malcolm Ledesma MD Transcribed by Rajni Keller Authenticated and [facility]
== END 2024-10-29 23:59 | disposition home or self-care (01) ==
LOC: RAD 15:01
PROVIDERS: PCP Student in an Organized Health Care Education/Training Program; Visit Provider Student in an Organized Health Care Education/Training Program
DX: M65.342 Trigger finger, left ring finger (principal); M25.50 Pain in unspecified joint; M21.942 Unspecified acquired deformity of hand, left hand
CPT/HCPCS: 73218